=== PATIENT | female | born 1955 | race Caucasian/White ===

== ENCOUNTER 2019-09-21 11:23 | Outpatient (CLI) | payer MEDICARE, SELFPAY ==
--- NOTE | ~2019-09-21 | MMUS_ITS ---
MM diagnostic jeff BI w aasd, US breast LT limited DATE: 09/21/2019 11:54 (accession [id number]), 09/21/2019 12:35 (accession [id number]) INDICATION: Six-month follow-up of probable benign left breast mass at 6:00 7 cm from the nipple TECHNIQUE: Digital ML, MLO and CC Tomosynthesis with composite 2-D views. Computer-aided detection. COMPARISON: 09/26/2018 bilateral digital screening mammogram and diagnostic left digital mammogram and limited left breast ultrasound 01/27/2011 bilateral digital screening mammogram DENSITY: The breasts are almost entirely fatty. FINDINGS: Bilateral diagnostic mammogram: Approximately 3 x 9 x 8 mm circumscribed opacity is noted posteriorly in the central left breast, sta ble since 10/06/2018. No interval mass, architectural distortion, malignant calcification, skin thicke simeon or retraction of either breast is detected. Targeted left breast ultrasound at 6:00: Previously reported 3.3 x 6.9 x 6.6 mm parallel circumscribed hypoechoic lesion at 6:00 7 cm from the nipple currently measures approximately 4 x 4.5 x 5.3 mm, without internal vascularity or posterior shadowing. IMPRESSION: BIRADS Category 2: Benign RECOMMENDATION: Routine annual mammographic screening Reviewed, dictated and finalized at [facility] Reviewed, dictated and finalized at [facility]. ING MACHINE ASSEMBLER IMPRESSION: BIRADS Category 2: Benign RECOMMENDATION: Routine annual mammographic screening
== END 2019-09-21 11:24 | disposition home or self-care (01) ==
PROVIDERS: PCP Family Medicine Adolescent Medicine; Referring Provider Obstetrics & Gynecology Gynecology
DX: R92.8 Other abnormal and inconclusive findings on diagnostic imaging of breast (principal)
CPT/HCPCS: 76642; 77062; 77066; G0279

== ENCOUNTER 2020-11-01 09:40 | Observation (INO) | payer MEDICARE, SELFPAY ==
[2020-11-01] VITALS (9 sets, daily range): BP systolic 108–141; BP diastolic 70–94; PULSE 66–113; RESP 16–18; TEMP 36.2–36.9; O2SAT 99–100; BMI 37.3
--- NOTE | 2020-11-01 10:18 | ED.GENADULT ---
HPI - General Adult General Chief complaint: GI Bleed Stated complaint: gi bleed Time Seen by Provider: 11/01/20 10:12 Source: patient and RN notes reviewed Mode of arrival: ambulatory Limitations: no limitations History of Present Illness HPI narrative: Patient is a 65 years old white female presents with frequent liquidy black stool since last night associated with weakness. Patient denies any fever, chills, nausea, vomiting, abdominal pain, back pain, chest pain or shortness of breath. History of Daniel fundoplication 2006. Patient is not on any PPI at this time. Patient denies any blood thinner intake. Patient does not smoke or drink or uses drugs. Related Data Home Medications Medication Instructions Recorded Confirmed cholecalciferol (vitamin D3) 100 mcg PO DAILY 11/01/20 escitalopram oxalate mg 11/01/20 Allergies Allergy/AdvReac Type Severity Reaction Status Date / Time No Known Allergies Allergy Verified 01/16/19 09:02 Review of Systems Review of Systems: Narrative: CONSTITUTIONAL: Denies fever, chills, or sweats. EYES: Denies visual changes, redness, or discharge. ENT: Denies rhinorrhea, congestion, sore throat, or otalgia. CARDIOVASCULAR: Denies chest pain, palpitations, or edema. RESPIRATORY: Denies cough or dyspnea. GASTROINTESTINAL: Denies abdominal pain, nausea, vomiting, or diarrhea. GENITOURINARY: Denies dysuria or hematuria. SKIN: Denies rash or itching. MUSCULOSKELETAL: Denies back pain, joint pain, or myalgia. NEUROLOGIC: Denies headache, numbness, or weakness. PSYCHIATRIC: Denies anxiety or depression. PMFSH Family History Family History Other Cerebrovascular accident Diabetes mellitus Family history of Alzheimer's disease Family history of cardiovascular disease Hypertension Social History Social History Smoking status: Never smoker Alcohol intake: never Exam Narrative: Exam Narrative: General appearance: Well-developed, well-nourished Skin: Normal color Head: Normocephalic, nontraumatic Eyes: Clear conjunctiva ENT: Oropharynx normal, ears normal, nose normal Neck: Supple, nontender Chest and respiratory: Airway patent, no respiratory distress, no accessory muscle use Heart: Regular rate/rhythm Abdomen: Soft, nontender, no organomegaly, quiet bowel sounds, rectal exam showed liquidy black stool, guaiac positive, no tenderness, no mass, no hemorrhoids Vascular: Normal peripheral pulses, normal capillary refill. Musculoskeletal: Normal range of motion, nontender back Neurologic: Alert and oriented ?3, VERIFICATION SPECIALIST is normal as tested, no gross motor deficit Course Course Emergency Course: Stable Consultations Consultation #1: Dr. Aguilar Date: 11/01/20 Time: 11:37 Vital Signs Vital signs: Vital Signs Temperature 36.9 C 11/01/20 09:48 Pulse Rate 86 11/01/20 09:48 Respiratory Rate 18 11/01/20 09:48 Blood Pressure 141/91 H 11/01/20 09:48 Pulse Oximetry 99 11/01/20 09:48 Temperature 36.9 C 11/01/20 09:48 Pulse Rate 113 H 11/01/20 10:09 Respiratory Rate 18 11/01/20 09:48 Blood Pressure 125/80 11/01/20 10:09 Pulse Oximetry 99 11/01/20 09:48 Medical Decision Making [facility] Narrative Medical decision making narrative: Patient presents with black stool. Upper GI bleed is my concern especially patient had history of GERD, fundoplication. Labs, IV Protonix, IV fluid ordered. Further plan to follow Differential Diagnosis Differential Diagnosis: GI bleed, electrolyte imbalance, anemia Vital Signs Vital Signs: Vital Signs Temperature 36.9 C 11/01/20 09:48 Puls
[2020-11-01 10:35] LABS: Basophils Absolute Auto 0.1 K/mm3 (0.0-0.1); Basophils Percent Auto 0.7 % (0.2-1.2); Eosinophils Percent Auto 0.3 % (0-4.4); Hematocrit 41.4 % (37.0-47.0); Hemoglobin 13.4 g/dL (12.0-15.0); Immature Granulocyte Absolute 0.09 K/mm3 (0.00-0.031); Immature Granulocyte Percent A 0.8 % (0-0.5); Lymphocytes Percent Auto 14.5 % (18.3-44.2); Mean Corpuscular HGB Conc 32.4 g/dl (32-36); Mean Corpuscular Hemoglobin 30.4 pg (26-34); Mean Corpuscular Volume 93.9 fl (80-100); Mean Platelet Volume 10.1 fl (7.4-10.4); Monocytes Absolute Auto 0.5 K/mm3 (0.1-0.6); Monocytes Percent Auto 4.9 % (2.6-8.5); Neutrophils Absolute Auto 8.7 K/mm3 (1.3-6.7); Neutrophils Percent Auto 78.8 % (45.5-73.1); Platelet Count Result 355 k/mm3 (150-375); Red Blood Count 4.41 M/mm3 (4.2-5.4)
[2020-11-01] MEDS: PANTOPRAZOLE SODIUM IV 40 MG VIAL IV PUSH ×2 (10:41→20:23)
[2020-11-01 10:42] LABS: Alanine Aminotransferase 19 U/L (4-35); Albumin Level 4.1 g/dL (3.5-5.1); Alkaline Phosphatase 67 U/L (38-126); Anion Gap 8 mmol/L (8-16); Aspartate Amino Transferase 21 U/L (14-36); Bilirubin,Total 0.4 mg/dL (0.2-1.3); Blood Urea Nitrogen 34 mg/dL (7-17); Calcium 8.8 mg/dL (8.4-10.2); Carbon Dioxide 25 mmol/L (22-30); Chloride 104 mmol/L (98-107); Estimated CRCL calculation 77 ml/min; Estimated Glomerular Filt Rate > 60; Glucose 120 mg/dL (65-105); Potassium 4.3 mmol/L (3.4-5.0); Sodium 137 mmol/L (137-145)
[2020-11-01 10:56] LABS: Prothrombin Time 13.7 Seconds (11.1-14.7)
[2020-11-01 10:57] LABS: Partial Thromboplastin Time 22.7 SECONDS (22.3-36.8)
[2020-11-01 12:06] LABS: Hemoglobin 12.9 g/dL (12.0-15.0)
--- NOTE | 2020-11-01 13:35 | PC.NURSE ---
This patient, Deena Damon, was admitted to [facility] Surg Room 310-01. Patient/family oriented to hospital policies and general routines including ID bracelet, bed and alarms, visiting hours, pain management, procedures, bathroom and other care routines, personal items, smoking policy, room service/diet, and visiting hours. Information on how to activate the Rapid Response Team has been discussed. Patient/Family are encouraged to report perceived risks to care and to ask questions if they do not understand what they are told or what they should do.
[2020-11-01] MEDS: SODIUM CHLORIDE 0.9% IV 1,000 ML 150 ML IV CONT ×2 (14:00→20:22)
--- NOTE | 2020-11-01 16:18 | PM.IMHP ---
H&P: HPI History of Present Illness Date/Time: 11/01/20 16:18 this is a 65 year old female patient who has had a colonoscopy in the last 5 years and has had a polypectomy. The patient also had a history of fundoplication with herniation at the insertion sites. The patient started having dark liquid stools last night and became very weak. She was not short of breath. She denies any fever, chills, nausea, vomiting or abdominal pain. The patient stated that she has tenderness around her umbilical area in her left upper quadrant where it has herniated but otherwise she does not have any other pain and that pain is chronic. The patient stated that she probably used instead the couple times during the week but does not use it excessively. The patient is not on a PPI. The patient stated that she had 1 dark stool down in the emergency room. She does not take any iron supplement. Her H&H is stable at this time. Initial H&H 13.4 and 41.4 and the 2nd reading was 12.9 and 39.0. The patient is being admitted to observation status on the date of service of 11/01/2020 Chief Complaint: Dark stools Review of Systems Review of Systems: All systems reviewed & are unremarkable except as noted in HPI and below Constitutional: Constitutional: Reports as per HPI and Reports no additional constitutional complaints Eyes: Eyes: Reports as per HPI and Reports no additional eye complaints ENT: Reports system reviewed and no additional complaints, except as documented and Reports Normal hearing present Cardiovascular: Cardiovascular: Reports no additional cardiovascular complaints Respiratory: Respiratory: Reports no additional respiratory complaints and Reports no additional respiratory complaints Gastrointestinal: Gastrointestinal: Reports as per HPI and Reports no additional gastrointestinal complaints Musculoskeletal: Musculoskeletal: Reports no additional musculoskeletal complaints Integumentary/Breasts: Skin/Breast: Reports system reviewed and no additional complaints, except as docu and Reports as per HPI Neurologic: Reports system reviewed and no additional complaints, except as documented, Reports as per HPI and Reports Normal hearing present Psychiatric: Psychiatric: Reports no additional psychiatric complaints and Reports as per HPI Endocrine: Endocrine: Reports no additional endocrine complaints Hematologic/Lymphatic: Hematologic/Lymphatic: Reports no additional hematologic/lymphatic complaints Allergic/Immunologic: Allergic/Immunologic: Reports no additional allergic/immunologic complaints [facility] Past Medical History Medical History (Updated 11/01/20 @ 16:21 by Yessy Banks NP) Anxiety Large hiatal hernia Surgical History Surgical History (Updated 11/01/20 @ 16:21 by Yessy Banks NP) H/O colonoscopy with polypectomy History of fundoplication Family History Family History (Updated 11/01/20 @ 16:22 by Yessy Banks NP) Mother Cerebrovascular accident Family history of cardiovascular disease Father Family history of cardiovascular disease Other Diabetes mellitus Family history of Alzheimer's disease Hypertension Social History Social History (Updated 11/01/20 @ 16:23 by Yessy Banks NP) Social History: The patient is a lifelong nonsmoker. The patient is and desires to have her is a durable power business attorney for healthcare. The patient is a full code. The patient has 3 children. 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 Smoking status: Never smoker Alcohol intake: never Substance use: never Gender identity (if verbalized by the patient): Female Sexual Orientation (if Verbalized by the Patient): Straight or Heterosexual Spiritual care concerns: No Meds Home Medications and Allergies Home Medications Medication Instructions Recorded Confirmed Type cholecalciferol (vitamin D3) 100 mcg PO DAILY 11/01/20 04
--- NOTE | 2020-11-01 16:40 | WPDGICN ---
Assessment and Plan Assessment and plan (1) Melena: Code(s): K92.1 - Melena Status: Acute Assessment and Plan: admitted to hospital on iv protonix egd in the morning to assess site of bleeding, she recently used nsaid's (2) Acute GI bleeding: Code(s): K92.2 - Gastrointestinal hemorrhage, unspecified Status: Acute Assessment and Plan: monitor and check hb, on fluids (3) Acute blood loss anemia: Code(s): D62 - Acute posthemorrhagic anemia Status: Acute (4) History of fundoplication: Code(s): Z98.890 - Other specified postprocedural states Status: Inactive GI Consult Note Consult date/time: 11/01/20 16:40 Reason for consult: melena HPI: Deena Damon is a 65 year old female history of Daniel fundoplication 2006 (around that time had her last EGD), she is not taking any ppi, her last colonoscopy ~ [address] Garces with polyps. She came here with new onset last night of dark tarry stools about 5 times and this morning became very weak. Initial Hb 13.4 and repeat 12.9, BUN 34 with normal creatinine. Denies previous GIB. She says that took ibuprofen x3 last 5 days because foot pain. She is admitted to hospital and started on iv protonix. Review of Systems Constitutional: Constitutional: Denies chills and Reports weakness Eyes: Eyes: Denies blurry vision ENT: Reports Normal hearing present Cardiovascular: Cardiovascular: Denies chest pain Respiratory: Respiratory: Denies dyspnea Gastrointestinal: Gastrointestinal: Denies abdominal pain and Reports melena Genitourinary: Genitourinary: Denies flank pain Musculoskeletal: Musculoskeletal: Denies neck pain Integumentary/Breasts: Skin/Breast: Denies dry skin Neurologic: Denies headache(s) Psychiatric: Psychiatric: Reports no additional psychiatric complaints PMFSH Past Medical History Medical History (Updated 11/01/20 @ 16:45 by Maciel Bello MD) Acute blood loss anemia Anxiety Large hiatal hernia Melena Surgical History Surgical History (Updated 11/01/20 @ 16:45 by Maciel Bello MD) H/O colonoscopy with polypectomy History of fundoplication Family History Family History (Updated 11/01/20 @ 16:22 by Yessy Banks NP) Mother Cerebrovascular accident Family history of cardiovascular disease Father Family history of cardiovascular disease Other Diabetes mellitus Family history of Alzheimer's disease Hypertension Social History Social History (Updated 11/01/20 @ 16:23 by Yessy Banks NP) Social History: The patient is a lifelong nonsmoker. The patient is and desires to have her is a durable power finance attorney for healthcare. The patient is a full code. The patient has 3 children. 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 Smoking status: Never smoker Alcohol intake: never Substance use: never Gender identity (if verbalized by the patient): Female Sexual Orientation (if Verbalized by the Patient): Straight or Heterosexual Spiritual care concerns: No Meds Home Medications and Allergies Home Medications Medication Instructions Recorded Confirmed Type cholecalciferol (vitamin D3) 100 mcg PO DAILY 11/01/20 11/01/20 History escitalopram oxalate 10 mg PO DAILY 11/01/20 11/01/20 History Allergies Allergy/AdvReac Type Severity Reaction Status Date / Time No Known Allergies Allergy Verified 01/16/19 09:02 Vital Signs Vital Signs - 24 hr 11/01/20 09:48 11/01/20 10:09 11/01/20 11:46 Temperature 98.5 F Pulse Rate 86 113 H 90 Respiratory Rate 18 18 Blood Pressure 141/91 H 120/78 112/73 Pulse Oximetry 99 100 11/01/20 13:24 11/01/20 14:00 11/01/20 14:10 Temperature 97.4 F L Pulse Rate 81 66 81 Respiratory Rate 16 16 16 Blood Pressure 132/94 H 130/85 Pulse Oximetry 99 99 99 Exam Const: General: comfortable and
[2020-11-01 18:06] LABS: Hematocrit 40.2 % (37.0-47.0); Hemoglobin 13.3 g/dL (12.0-15.0)
[2020-11-02 01:16] LABS: Hematocrit 34.6 % (37.0-47.0); Hemoglobin 11.6 g/dL (12.0-15.0)
[2020-11-02] MEDS: SODIUM CHLORIDE 0.9% IV 1,000 ML 150 ML IV CONT (05:34)
[2020-11-02 06:00] VITALS: BP 99/55; PULSE 69; RESP 16; TEMP 36.2; O2SAT 97
[2020-11-02 06:19] LABS: Hematocrit 33.8 % (37.0-47.0); Hemoglobin 10.9 g/dL (12.0-15.0)
[2020-11-02 06:26] LABS: Alanine Aminotransferase 13 U/L (4-35); Albumin Level 3.1 g/dL (3.5-5.1); Alkaline Phosphatase 55 U/L (38-126); Anion Gap 2 mmol/L (8-16); Aspartate Amino Transferase 20 U/L (14-36); Bilirubin,Total 0.2 mg/dL (0.2-1.3); Blood Urea Nitrogen 24 mg/dL (7-17); Calcium 8.3 mg/dL (8.4-10.2); Carbon Dioxide 29 mmol/L (22-30); Chloride 109 mmol/L (98-107); Estimated CRCL calculation 68 ml/min; Estimated Glomerular Filt Rate > 60; Glucose 94 mg/dL (65-105); Lipase 27 U/L (23-300); Magnesium 1.9 mg/dL (1.6-2.3); Potassium 3.8 mmol/L (3.4-5.0); Sodium 140 mmol/L (137-145)
[2020-11-02 08:05] VITALS: O2SAT 98
[2020-11-02] MEDS: PANTOPRAZOLE SODIUM IV 40 MG VIAL IV PUSH (10:34)
--- NOTE | 2020-11-02 11:41 | PM.IMPN ---
Progress Note: A&P Assessment and Plan (1) Acute GI bleeding: Code(s): K92.2 - Gastrointestinal hemorrhage, unspecified Status: Acute Assessment and Plan: Developed melena and diarrhea symptoms 24 hours prior to arrival. She also has symptoms of fatigue. Hemoglobin on arrival was 13.4 and this morning was 10.9. She reports her fatigue is improving. Will continue monitoring H&H every [address] Aguilar is going to perform an EGD this morning. Continue monitoring (2) Anxiety: Code(s): F41.9 - Anxiety disorder, unspecified Status: Chronic Assessment and Plan: Continue with Lexapro Time Spent With Patient Time with patient: 25 - 35 minutes Subjective Date/time seen: 11/02/20 11:41 Interval history: Date of Service 11/02/20: Patient feeling well today. No more dark stools after being admitted into the hospital. She does not have any pain, nausea, vomiting, fever, chills, leg swelling, calf pain or any other symptoms at this time. Review of Systems Review of Systems: All systems reviewed & are unremarkable except as noted in HPI and below Exam Narrative: Exam Narrative: General: 65-year-old woman sitting up on the side of the bed, watching TV. Appears comfortable. In no acute distress. Skin: No jaundice or cyanosis. Good skin turgor. Neck: Full range of motion. Supple. Nontender. Respiratory: Lungs are clear to auscultation bilaterally. No bony chest wall tenderness. Cardiovascular: The heart has a regular rate and rhythm without murmur. Lower extremities: No lower extremity edema. Distal pulses are easily palpated. No calf tenderness to palpation. Gastrointestinal: The abdomen is soft, nontender and nondistended with active bowel sounds. Psychiatric: Lucid and oriented. Memory intact. Neurologic: No focal deficits. Speech is clear. No facial drooping. Objective Data Vital Signs Vital Signs: Vital Signs - 24 hr 11/01/20 11:46 11/01/20 13:24 11/01/20 14:00 Temperature 97.4 F L Pulse Rate 90 81 66 Respiratory Rate 18 16 16 Blood Pressure 112/73 132/94 H 130/85 Pulse Oximetry 100 99 99 11/01/20 14:10 11/01/20 22:00 11/02/20 06:00 Temperature 97.2 F L 97.2 F L Pulse Rate 81 96 69 Respiratory Rate 16 16 16 Blood Pressure 108/75 99/55 L Pulse Oximetry 99 99 97 11/02/20 08:05 Temperature Pulse Rate Respiratory Rate Blood Pressure Pulse Oximetry 98 Intake/Output Intake/Output: Intake & Output 10/30/20 10/31/20 11/01/20 11/02/20 23:59 23:59 23:59 23:59 Intake Total 1600 1300 Balance 1600 1300 Meds/Results Medications: Active Medications Generic Name Dose Route Start Last Admin Trade Name Freq PRN Reason Stop Dose Admin Escitalopram Oxalate 10 mg 11/02/20 09:00 Escitalopram Oxalate 10 Mg Tablet PO DAILY [facility] Sodium Chloride 1,000 mls @ 150 mls/hr 11/01/20 11:35 11/02/20 05:34 Normal Saline Iv IV CONT 150 mls/hr .Q6H40M AMAIRANI Administration Ondansetron HCl 4 mg 11/01/20 11:31 Ondansetron Inj 4 Mg/2 Ml Vial IV PUSH Q4H PRN Nausea Pantoprazole Sodium 40 mg 11/01/20 21:00 11/02/20 10:34 Pantoprazole Sodium Iv 40 Mg Vial IV PUSH 40 mg Q12HR AMAIRANI Administration Vitamin D 4,000 units 11/02/20 09:00 Cholecalciferol 1,000 Units Tablet PO DAILY [facility] Labs Labs: Laboratory Results - last 24 hr 11/01/20 11/01/20 11/02/20 12:01 17:58 01:09 Hgb 12.9 13.3 11.6 L Hct 39.0 40.2 34.6 L Sodium Potassium Chloride Carbon Dioxide Anion Gap BUN Creatinine Estim Creat Clear Calc Estimated GFR Glucose Calcium Magnesium Total Bilirubin AST ALT Alkaline Phosphatase Total Protein Albumin Lipase 11/02/20 11/02/20 05:44 05:44 Hgb 10.9 L Hct 33.8 L Sodium 140 Potassium 3.8 Chloride 109 H Carbon Dioxide 29 Anion Gap 2 L BUN 24 H D Creatinine 0.80
--- NOTE | 2020-11-02 12:10 | WPDANESEPPF ---
Anes - Initial Pre Proc Eval Procedure: Operation Date: 11/02/20 14:00 Proposed Procedures p Esophagogastroduodenoscopy - Maciel Bello MD Date/Time: 11/02/20 12:10 Surgeon: Ute Palmer PA-C Pre Op Diagnosis: GI bleed Patient Data Age: 65 Gender: F Height: 5 ft 4 in Weight: 98.8 kg Last Vital Signs Temp 97.2 F L 11/02/20 06:00 Pulse 69 11/02/20 06:00 Resp 16 11/02/20 06:00 BP 99/55 L 11/02/20 06:00 Pulse Ox 98 11/02/20 08:05 Allergies Allergy/AdvReac Type Severity Reaction Status Date / Time No Known Allergies Allergy Verified 01/16/19 09:02 Home Medications Medication Instructions Recorded Confirmed Type cholecalciferol (vitamin D3) 100 mcg PO DAILY 11/01/20 11/01/20 History escitalopram oxalate 10 mg PO DAILY 11/01/20 11/01/20 History Laboratory Tests 11/01/20 11/01/20 11/02/20 12:01 17:58 01:09 Hgb 12.9 g/dL g/dL 13.3 g/dL g/dL 11.6 g/dL L g/dL (12.0-15.0) (12.0-15.0) (12.0-15.0) Hct 39.0 % % 40.2 % % 34.6 % L % (37.0-47.0) (37.0-47.0) (37.0-47.0) Sodium Potassium Chloride Carbon Dioxide Anion Gap BUN Creatinine Estim Creat Clear Calc Estimated GFR Glucose Calcium Magnesium Total Bilirubin AST ALT Alkaline Phosphatase Total Protein Albumin Lipase 11/02/20 11/02/20 05:44 05:44 Hgb 10.9 g/dL L g/dL (12.0-15.0) Hct 33.8 % L % (37.0-47.0) Sodium 140 mmol/L mmol/L (137-145) Potassium 3.8 mmol/L mmol/L (3.4-5.0) Chloride 109 mmol/L H mmol/L (98-107) Carbon Dioxide 29 mmol/L mmol/L (22-30) Anion Gap 2 mmol/L L mmol/L (8-16) BUN 24 mg/dL H D mg/dL (7-17) Creatinine 0.80 mg/dL mg/dL (0.7-1.0) Estim Creat Clear Calc 68 ml/min ml/min Estimated GFR > 60 (59 - ) Glucose 94 mg/dL mg/dL (65-105) Calcium 8.3 mg/dL L mg/dL (8.4-10.2) Magnesium 1.9 mg/dL mg/dL (1.6-2.3) Total Bilirubin 0.2 mg/dL mg/dL (0.2-1.3) AST 20 U/L U/L (14-36) ALT 13 U/L U/L (4-35) Alkaline Phosphatase 55 U/L U/L (38-126) Total Protein 6.0 g/dL L g/dL (6.3-8.2) Albumin 3.1 g/dL L g/dL (3.5-5.1) Lipase 27 U/L U/L (23-300) Patient hx anesthesia problems: none Family hx anesthesia problems: none PMFSH Past Medical History Medical History (Updated 11/01/20 @ 16:45 by Maciel Bello MD) Acute blood loss anemia Anxiety Large hiatal hernia Melena Surgical History Surgical History (Updated 11/01/20 @ 16:45 by Maciel Bello MD) H/O colonoscopy with polypectomy History of fundoplication Family History Family History (Updated 11/01/20 @ 16:22 by Yessy Banks NP) Mother Cerebrovascular accident Family history of cardiovascular disease Father Family history of cardiovascular disease Other Diabetes mellitus Family history of Alzheimer's disease Hypertension Social History Social History (Updated 11/01/20 @ 16:23 by Yessy Banks NP) Social History: The patient is a lifelong nonsmoker. The patient is and desires to have her is a durable power regulatory attorney for healthcare. The patient is a full code. The patient has 3 children. 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 Smoking status: Never smoker Alcohol intake: never Substance use: never Gender identity (if verbalized by the patient): Female Sexual Orientation (if Verbalized by the Patient): Straight or Heterosexual Spiritual care concerns: No Anes - Eval Final PreProcedure Day of Procedure 11/02/20 12:10 Patient weight: obese Heart: regular rate and rhy
[2020-11-02] MEDS: LACTATED RINGERS 1,000 ML 150 ML IV CONT (13:00)
[2020-11-02 13:46] VITALS: BP 108/32; PULSE 72; RESP 19; O2SAT 100
[2020-11-02 13:56] VITALS: BP 109/48; PULSE 69; RESP 19; O2SAT 100
[2020-11-02 14:06] VITALS: BP 96/46; PULSE 70; RESP 21; O2SAT 100
[2020-11-02 14:57] LABS: Hematocrit 35.2 % (37.0-47.0); Hemoglobin 11.3 g/dL (12.0-15.0)
[2020-11-02] MEDS: CHOLECALCIFEROL 1,000 UNITS TABLET 4000 UNITS PO (16:35)
[2020-11-02] MEDS: ESCITALOPRAM OXALATE 10 MG TABLET PO (16:36)
--- NOTE | 2020-11-02 16:37 | PM.DS ---
DS: Admitting Diagnosis Admitting Diagnosis Admitting Diagnosis: Melena DS: Discharge Diagnosis Discharge Diagnosis (1) Acute GI bleeding: Code(s): K92.2 - Gastrointestinal hemorrhage, unspecified Status: Acute Assessment and Plan: Developed melena and diarrhea symptoms 24 hours prior to arrival. She also has symptoms of fatigue. Hemoglobin on arrival was 13.4 and this morning was 10.9. She reports her fatigue is improving. Will continue monitoring H&H every [address] Aguilar is going to perform an EGD this morning. Continue monitoring (2) Anxiety: Code(s): F41.9 - Anxiety disorder, unspecified Status: Chronic Assessment and Plan: Continue with Lexapro DS: Summary Hospital Course Reason for hospitalization: Patient is a 65-year-old woman with a history of anxiety, who presented to the emergency room with melonic stools, generalized weakness one night prior to arrival. The patient has never had similar symptoms before. Patient did have a colonoscopy within the last 5 years. Initial vitals showed she was afebrile, non tachycardic, normal respiratory rate, oxygenation on room air slightly elevated blood pressure 141/91. Initial labs showed slight leukocytosis, stable anemia labs with a hemoglobin of 13, hematocrit 41%. Normal coag panel, normal CMP other than slightly elevated BUN at 34 and glucose at 120. Patient was placed NPO with a consult to GI, started on IV PPI. GI took her for EGD which showed gastritis. Recommended PPI BID. Repeat EGD in 3 month. Recommended no NSAIDS. Patient is stable .H&H stable. Patient be discharged home. She understands and agrees the plan all questions answered. Hospital Course: See above Status at Discharge Cognitive/behavioral status at discharge: Stable, improved. Time Spent with Patient Time attestation: Total time spent providing and/or coordinating discharge services: 31 Time spent: Greater than 30 minutes Exam Narrative: Exam Narrative: General: 65-year-old woman sitting up on the side of the bed, watching TV. Appears comfortable. In no acute distress. Skin: No jaundice or cyanosis. Good skin turgor. Neck: Full range of motion. Supple. Nontender. Respiratory: Lungs are clear to auscultation bilaterally. No bony chest wall tenderness. Cardiovascular: The heart has a regular rate and rhythm without murmur. Lower extremities: No lower extremity edema. Distal pulses are easily palpated. No calf tenderness to palpation. Gastrointestinal: The abdomen is soft, nontender and nondistended with active bowel sounds. Psychiatric: Lucid and oriented. Memory intact. Neurologic: No focal deficits. Speech is clear. No facial drooping. DS: Data Data Completed and Pending Pending studies at discharge: Pending at discharge 11/02/20 13:42 Surgical [PTH] Routine Labs on day of discharge: Labs from last 24 hours 11/02/20 11/02/20 11/02/20 14:51 05:44 05:44 Hgb 11.3 L 10.9 L Hct 35.2 L 33.8 L Sodium 140 Potassium 3.8 Chloride 109 H Carbon Dioxide 29 Anion Gap 2 L BUN 24 H D Creatinine 0.80 Estim Creat Clear Calc 68 Estimated GFR > 60 Glucose 94 Calcium 8.3 L Magnesium 1.9 Total Bilirubin 0.2 AST 20 ALT 13 Alkaline Phosphatase 55 Total Protein 6.0 L Albumin 3.1 L Lipase 27 11/02/20 11/01/20 01:09 17:58 Hgb 11.6 L 13.3 Hct 34.6 L 40.2 Sodium Potassium Chloride Carbon Dioxide Anion Gap BUN Creatinine Estim Creat Clear Calc Estimated GFR Glucose Calcium Magnesium Total Bilirubin AST ALT Alkaline Phosphatase Total Protein Albumin Lipase Discharge Plan Discharge Attending physician on discharge: Santo Prescott Consulting providers: Maciel Bello Discharging Clinician: Ute Palmer
[2020-11-02 18:36] LABS: Hematocrit 34.2 % (37.0-47.0); Hemoglobin 11.2 g/dL (12.0-15.0)
== END 2020-11-02 18:20 | disposition home or self-care (01) ==
LOC: ANHED 11:38 → ANH3MEDSUR 14:03
PROVIDERS: Internal Medicine Gastroenterology; Nurse Practitioner; Physician Assistant; Admitting Provider Family Medicine; Emergency Provider Emergency Medicine; PCP Family Medicine Adolescent Medicine; Visit Provider Physician Assistant
PROC: 0DJ08ZZ Inspection of Upper Intestinal Tract, Via Natural or Artificial Opening Endoscopic (ICD-10-PCS; CPT 43235; principal; 2020-11-02 14:00)
DX: K92.2 Gastrointestinal hemorrhage, unspecified (principal); F41.9 Anxiety disorder, unspecified; K92.1 Melena; D62 Acute posthemorrhagic anemia
CPT/HCPCS: 43239; 36415; 80053; 83690; 83735; 85014; 85018; 85025; 85610; 85730; 86850; 86900; 86901; 87081; 88305; 96361; 96374; 99285; A9270; C9113; G0378; J2704; J7030; J7120

== ENCOUNTER → 2021-02-14 00:40 | Outpatient (CLI) | payer MEDICARE, SELFPAY ==
[2021-02-14 20:36] LABS: SARS-CoV-2 RNA PCR Negative
== END ==
PROVIDERS: PCP Family Medicine Adolescent Medicine; Visit Provider Internal Medicine Gastroenterology
DX: Z01.812 Encounter for preprocedural laboratory examination (principal); Z20.822 Contact with and (suspected) exposure to COVID-19
CPT/HCPCS: C9803; U0003; U0005

== ENCOUNTER 2021-02-17 00:16 | Day surgery (SDC) | payer MEDICARE, SELFPAY ==
[2021-02-02 15:30] VITALS: BMI 37.0
[2021-02-17 07:42] VITALS: BP 146/73; PULSE 74; RESP 18; TEMP 35.9; O2SAT 98; BMI 36.9
[2021-02-17] MEDS: LACTATED RINGERS 1,000 ML 150 ML IV CONT (07:50)
--- NOTE | 2021-02-17 08:31 | P.PNAN_ITS ---
Anes - Initial Pre Proc Eval Procedure: Operation Date: 02/17/21 08:30 Proposed Procedures p Esophagogastroduodenoscopy - Medhat Garces MD Date/Time: 02/17/21 08:31 Surgeon: Medhat Garces MD Pre Op Diagnosis: gastritis Patient Data Age: 65 Gender: F Height: 1.63 m Weight: 97.7 kg Last Vital Signs Temp 96.7 F L 02/17/21 07:42 Pulse 74 02/17/21 07:42 Resp 18 02/17/21 07:42 BP 146/73 H 02/17/21 07:42 Pulse Ox 98 02/17/21 07:42 Allergies Allergy/AdvReac Type Severity Reaction Status Date / Time No Known Allergies Allergy Verified 02/17/21 07:41 Home Medications Medication Instructions Recorded Confirmed Type cholecalciferol (vitamin D3) 100 mcg PO DAILY 11/01/20 02/17/21 History pantoprazole 40 mg PO BID 90 Days #180 tablet 11/02/20 02/17/21 Rx escitalopram oxalate 20 mg PO DAILY 02/02/21 02/17/21 History Patient hx anesthesia problems: none Family hx anesthesia problems: none PMFSH Past Medical History Medical History (Updated 11/01/20 @ 16:45 by Maciel Bello MD) Acute blood loss anemia Anxiety Large hiatal hernia Melena Surgical History Surgical History (Updated 11/01/20 @ 16:45 by Maciel Bello MD) H/O colonoscopy with polypectomy History of fundoplication Family History Family History (Updated 11/01/20 @ 16:22 by Yessy Banks NP) Mother Cerebrovascular accident Family history of cardiovascular disease Father Family history of cardiovascular disease Other Diabetes mellitus Family history of Alzheimer's disease Hypertension Social History Social History (Updated 11/01/20 @ 16:23 by Yessy Banks NP) Social History: The patient is a lifelong nonsmoker. The patient is and desires to have her is a durable power tax associate attorney for healthcare. The patient is a full code. The patient has 3 children. 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 Smoking status: Never smoker Alcohol intake: never Substance use: never Living arrangements: alone Gender identity (if verbalized by the patient): Female Spiritual care concerns: No Anes - Eval Final PreProcedure Day of Procedure 02/17/21 08:31 Patient weight: obese Heart: regular rate and rhythm Lungs: clear to auscultation Airway: Mallampati scale class II Neurological: alert and oriented Last oral intake: >/= 8 hours ASA classification: III Emergent: no Anesthetic plan: proceed Anesthesia type and monitoring: general GIVS and standard monitoring Informed Consent: The patient's anesthetic plan and its attendant risks and benefits were discussed with the patient/family/POA. Questions were solicited and answers provided to the satisfaction of the patient/family/POA.
--- NOTE | 2021-02-17 08:37 | WPDGICN ---
Assessment and Plan Assessment and plan (1) Gastric peptic ulcer: Code(s): K25.9 - Gastric ulcer, unspecified as acute or chronic, without hemorrhage or perforation Status: Acute Assessment and Plan: Patient had GI bleeding attributed to gastric ulcerations. Currently improving on pantoprazole 40 mg p.o. daily. Plan to continue to avoid nonsteroidal anti-inflammatory agents. Follow-up EGD today. Further recommendations after endoscopy. (2) History of colon polyps: Code(s): Z86.010 - Personal history of colonic polyps Status: Acute Assessment and Plan: Patient has a prior history of colon polyps. Continued follow-up at 5 year intervals is advised with colonoscopies. GI Consult Note Consult date/time: 02/17/21 08:37 HPI: Denea Damon is a 65 year old female Presents for follow-up EGD. Patient has a history of GI bleeding with melena in October of 2020. EGD revealed gastritis and superficial erosions ulcerations within the body of the stomach. She is subsequently been prescribed pantoprazole. Currently on 40 mg p.o. once daily. She currently denies any abdominal pain. She has had no evidence of recent GI blood loss. Bowel habits have been normal. She occasionally has throat discomfort. Patient denies any dysphagia. Review of Systems Review of Systems: All systems reviewed & are unremarkable except as noted in HPI and below PMFSH Past Medical History Medical History (Updated 02/17/21 @ 08:39 by Medhat Garces MD) Acute blood loss anemia Anxiety Large hiatal hernia Melena Surgical History Surgical History (Updated 11/01/20 @ 16:45 by Maciel Bello MD) H/O colonoscopy with polypectomy History of fundoplication Family History Family History (Updated 11/01/20 @ 16:22 by Yessy Banks NP) Mother Cerebrovascular accident Family history of cardiovascular disease Father Family history of cardiovascular disease Other Diabetes mellitus Family history of Alzheimer's disease Hypertension Social History Social History (Updated 11/01/20 @ 16:23 by Yessy Banks NP) Social History: The patient is a lifelong nonsmoker. The patient is and desires to have her is a durable power attorney law clerk for healthcare. The patient is a full code. The patient has 3 children. 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 Smoking status: Never smoker Alcohol intake: never Substance use: never Living arrangements: alone Gender identity (if verbalized by the patient): Female Spiritual care concerns: No Meds Home Medications and Allergies Home Medications Medication Instructions Recorded Confirmed Type cholecalciferol (vitamin D3) 100 mcg PO DAILY 11/01/20 02/17/21 History pantoprazole 40 mg PO BID 90 Days #180 tablet 11/02/20 02/17/21 Rx escitalopram oxalate 20 mg PO DAILY 02/02/21 02/17/21 History Allergies Allergy/AdvReac Type Severity Reaction Status Date / Time No Known Allergies Allergy Verified 02/17/21 07:41 Vital Signs Vital Signs - 24 hr 02/17/21 07:42 Temperature 96.7 F L Pulse Rate 74 Respiratory Rate 18 Blood Pressure 146/73 H Pulse Oximetry 98 Exam Narrative: Physical exam reveals patient to be alert. Vital signs stable. HEENT exam is unremarkable. Patient is anicteric. Lungs are clear to auscultation and percussion. Heart is without murmur or extra sounds. Abdominal exam bowel sounds are present soft nontender with no organomegaly.
[2021-02-17 08:58] VITALS: BP 105/66; PULSE 66; RESP 18; O2SAT 94
[2021-02-17 09:08] VITALS: BP 110/68; PULSE 64; RESP 18; O2SAT 95
[2021-02-17 09:18] VITALS: BP 121/77; PULSE 66; RESP 20; O2SAT 96
== END 2021-02-17 09:25 | disposition home or self-care (01) ==
PROVIDERS: PCP Family Medicine Adolescent Medicine; Visit Provider Internal Medicine Gastroenterology
PROC: 0DJ08ZZ Inspection of Upper Intestinal Tract, Via Natural or Artificial Opening Endoscopic (ICD-10-PCS; CPT 43235; principal; 2021-02-17 08:30)
DX: K25.4 Chronic or unspecified gastric ulcer with hemorrhage (principal); Z86.010 Personal history of colon polyps; F41.9 Anxiety disorder, unspecified; E66.9 Obesity, unspecified; Z68.37 Body mass index [BMI] 37.0-37.9, adult
CPT/HCPCS: 43239; 87081; J2704; J7120

== ENCOUNTER 2021-08-25 08:25 | Outpatient (CLI) | payer MEDICARE, SELFPAY ==
--- NOTE | ~2021-08-25 | CT_ITS ---
EXAMINATION: CT abdomen w con DATE: 08/25/2021 08:56 INDICATION: Left upper quadrant pain, tenderness. Tender ventral hernia. TECHNIQUE: Computed tomography (CT) of the abdomen and pelvis was performed with 100 cc Omnipaque 350 intravenous contrast. Automated exposure control and iterative reconstruction technique were employe d. Exam dose: 958.56 mGy-cm total exam DLP. COMPARISON: 12/05/2018 complete abdominal ultrasound examination 07/24/2016 CT abdomen FINDINGS: The lung bases are clear. Normal heart size. No pericardial or pleural effusion. Status post Daniel fundoplication. No hepatic space-occupying mass lesion is evident. Cholelithiasis is noted. Borderline thickening of the gallbladder wall. No pericholecystic fluid or f at stranding. No bile duct dilatation. No pancreatic mass lesion, calcification or ductal dilatation. Normal splenic size. Normal morphology of the adrenal glands. No renal mass lesion or urinary tract calculus or hydroureteronephrosis is evident. Normal caliber of the abdominal aorta; no abdominal aortic aneurysm. No intraperitoneal or retroperit rascon mass lesion or adenopathy or ascites. Duodenal diverticulum. Multiple diverticula of the ileum. There are numerous diverticula of the sigmoid and descending colon, splenic flexure and transverse co angie, hepatic flexure and to a lesser extent ascending colon; no CT evidence of diverticulitis. No bowel obstruction or intraperitoneal free air. There is a very large supraumbilical midline ventral abdominal wall hernia, measuring up to 16 cm tra nsverse dimension, 7 cm anteroposterior dimension and 12 cm vertical dimension with approximately 4.4 cm wide mouth, containing fat and a loop of transverse colon without strangulation or obstruction. Small fat-containing umbilical hernia. Moderate degenerative disc disease L2-3, L3-4. Severe degenerative disease at L4-5 and L5-S1. No susp icious osteolytic or osteoblastic lesions are noted. IMPRESSION: 7 x 12 x 16 cm supraumbilical ventral midline hernia containing a loop of nonobstructed transverse colon and fat Small fat-containing umbilical hernia Cholelithiasis, borderline gallbladder wall thickening Duodenal and ileal diverticula Diverticulosis of left and right colon; no CT evidence of diverticulitis Status post - fundoplication Reviewed, dictated and finalized at [facility]. Reviewed, dictated and finalized at location [facility]. OR DESIGN ENGINEERING SPECIALIST
== END 2021-08-25 08:26 | disposition home or self-care (01) ==
PROVIDERS: PCP Family Medicine Adolescent Medicine; Visit Provider Family Medicine Adolescent Medicine
DX: R10.12 Left upper quadrant pain (principal); K42.9 Umbilical hernia without obstruction or gangrene; K43.9 Ventral hernia without obstruction or gangrene; K80.20 Calculus of gallbladder without cholecystitis without obstruction; K57.10 Diverticulosis of small intestine without perforation or abscess without bleeding; Z98.890 Other specified postprocedural states
CPT/HCPCS: 74160; Q9967

== ENCOUNTER 2021-12-18 15:54 | Inpatient (IN) | payer MEDICARE, SELFPAY ==
[2021-12-18] VITALS (8 sets, daily range): BP systolic 105–118; BP diastolic 53–91; PULSE 85–106; RESP 12–22; TEMP 36.7–37.4; O2SAT 93–99; BMI 35.7
--- NOTE | ~2021-12-18 | CT_ITS ---
EXAMINATION: CT brain wo con DATE: 12/18/2021 16:41 INDICATION: Syncope. Trauma to the head. TECHNIQUE: Computed tomography (CT) of the head was performed without intravenous contrast. The dose- length product was 605.33 mGy-cm. Automated exposure control and iterative reconstruction technique w ere employed. COMPARISON: None FINDINGS: Mild generalized atrophy. There are scattered mild periventricular and subcortical white ma tter changes, most likely related to small vessel ischemic disease (microangiopathy). No acute intrac ranial hemorrhage, infarction, mass or mass effect. Basilar cisterns are patent. Paranasal sinuses an d mastoids are pneumatized. No depressed skull fractures. No depressed skull fractures. IMPRESSION: 1. No acute intracranial abnormality. 2: Chronic age-related findings. Reviewed, dictated and finalized at location [facility].
--- NOTE | ~2021-12-18 | XR_ITS ---
EXAMINATION: XR small bowel follow through DATE: 12/20/2021 18:15 INDICATION: GI bleeding TECHNIQUE: Circuit Rider radiograph(s) of the abdomen was/were obtained. Oral contrast was administered, and sequential radiographs of the abdomen were obtained until oral contrast was noted to be in the colon . COMPARISON: 04/21/2007 FINDINGS: Circuit Rider radiograph demonstrates surgical clips in the midabdomen. The bowel gas pattern is un remarkable. Transit time from the stomach to proximal colon was approximately two hours. There is nor mal caliber and mucosal fold pattern throughout the small bowel. There are multiple diverticula of th e jejunum. Terminal ileum is normal. IMPRESSION: 1. Jejunal diverticulosis. Reviewed, dictated and finalized at location [facility]. IMPRESSION: 1. Jejunal diverticulosis.
--- NOTE | 2021-12-18 16:04 | ECG_ITS ---
Measurements Intervals [place] Rate: 169 P: DE: 0 QRS: 29 QRSD: 102 T: -13 QT: 260 QTc: 436 Interpretive Statements SUPRAVENTRICULAR TACHYCARDIA ST-T WAVE ABNORMALITY IN INFERIOR LEADS- CONSIDER ISCHEMIA ABNORMAL ECG Electronically Signed On 12-18-2021 20:21:36 CDT by Luis A Fitzgerald D.O.
--- NOTE | 2021-12-18 16:05 | ED.GENADULT ---
HPI - General Adult General Chief complaint: Syncope Stated complaint: syncopy/bloody stools History of Present Illness HPI narrative: 66-year-old female with history of upper GI bleed presented to the emergency department for evaluation after having a syncopal episode. Patient states that yesterday she began having black tarry stool throughout the day and evening. Patient did take a Protonix yesterday. Patient states that this morning after having a bowel movement, which was also black and tarry, patient was walking back to her bed when she had onset of diaphoresis and dizziness and had a subsequent syncopal episode. Patient states she did fall to the ground and had complete loss of consciousness. Patient does not suspect that she struck her head. Patient was home alone and was able to ultimately get to the phone and called EMS. Patient did have an umbilical hernia repair on October 15 in [place]. Patient did finish a steroid taper just a few days ago. Patient does take intermittent Motrin. Patient has been taking diclofenac Patient did have a prior history of an upper GI bleed in October 2020 and had a EGD showing gastritis and superficial erosions of the body of the stomach. Patient was advised to take pantoprazole and had a rescoped on February 08 showing improvement. Patient states she has not been taking her pantoprazole regularly as of recently Related Data Home Medications Medication Instructions Recorded Confirmed cholecalciferol (vitamin D3) 100 100 mcg PO DAILY 11/01/20 09/11/21 mcg (4,000 unit) capsule cetirizine 10 mg tablet 10 mg PO DAILY PRN 08/21/21 09/11/21 diclofenac sodium 75 mg 75 mg PO BID PRN pain 08/21/21 09/11/21 tablet,delayed release Allergies Allergy/AdvReac Type Severity Reaction Status Date / Time No Known Allergies Allergy Verified 12/18/21 16:03 Review of Systems Review of Systems: CONSTITUTIONAL: Increased generalized weakness EYES: Denies visual changes, redness, or discharge. ENT: Denies rhinorrhea, congestion, sore throat, or otalgia. CARDIOVASCULAR: Denies chest pain, palpitations, or edema. RESPIRATORY: Denies cough or dyspnea. GASTROINTESTINAL: See HPI GENITOURINARY: Denies dysuria or hematuria. SKIN: Denies rash or itching. MUSCULOSKELETAL: Denies back pain, joint pain, or myalgia. NEUROLOGIC: See HPI PSYCHIATRIC: Denies anxiety or depression. PMFSH Past Medical History Medical History (Updated 12/18/21 @ 17:37 by Silas Méndez MD) Acute blood loss anemia 02/08 Anxiety Gastric peptic ulcer 02/08 History of colon polyps Large hiatal hernia Surgical History Surgical History (Updated 09/11/21 @ 11:26 by Jaki Boland) H/O colonoscopy with polypectomy 02/06 Repeat 02/11 History of fundoplication 06/27 Repair paraesophageal hernia History of repair of hiatal hernia Family History Family History Mother Cerebrovascular accident Family history of cardiovascular disease Depression Father Family history of cardiovascular disease Carcinoma of colon Colon polyp Diabetes mellitus Sibling Carcinoma of colon Depression Other Hypertension Social History Social History Social History: The patient is a lifelong nonsmoker. The patient is and desires to have her is a durable power health care attorney for healthcare. The patient is a full code. The patient has 3 children. 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 Smoking status: Never smoker Second hand tobacco smoke exposure: No Alcohol intake: never Substance use: never Substance use type: does not use Gender identity (if verbalized by the patient): Female Sexual Orientation (if Verbalized by the Patient): Straight or Heterosexual Spiritual care concerns: No Agree to blood products: Yes Exam Narrative: TITA
[2021-12-18] MEDS: PANTOPRAZOLE SODIUM IV 40 MG VIAL 80 MG IV PUSH (16:13)
[2021-12-18] MEDS: ONDANSETRON INJ 4 MG/2 ML VIAL IV PUSH (16:13)
[2021-12-18 16:24] LABS: Basophils Absolute Auto 0.1 K/mm3 (0.0-0.1); Basophils Percent Auto 0.4 % (0.2-1.2); Eosinophils Percent Auto 0.1 % (0-4.4); Hematocrit 34.2 % (37.0-47.0); Hemoglobin 10.6 g/dL (12.0-15.0); Immature Granulocyte Absolute 0.19 K/mm3 (0.00-0.031); Lymphocytes Absolute Auto 1.99 K/mm3 (0.9-3.2); Lymphocytes Percent Auto 10.9 % (18.3-44.2); Mean Corpuscular Hemoglobin 30.2 pg (26-34); Mean Corpuscular Volume 97.4 fl (80-100); Mean Platelet Volume 9.8 fl (7.4-10.4); Monocytes Absolute Auto 0.8 K/mm3 (0.1-0.6); Monocytes Percent Auto 4.3 % (2.6-8.5); Neutrophils Absolute Auto 15.2 K/mm3 (1.3-6.7); Neutrophils Percent Auto 83.3 % (45.5-73.1); Platelet Count Result 370 k/mm3 (150-375); Red Blood Count 3.51 M/mm3 (4.2-5.4); Red Cell Distribution Width 13.7 % (11.5-14.5); White Blood Count 18.2 K/mm3 (4.5-10.0)
[2021-12-18 16:32] LABS: Lactic Acid Reflex 3.7 mmol/L (0.7-2.0)
[2021-12-18 16:33] LABS: INR 1.1
[2021-12-18 16:35] LABS: Partial Thromboplastin Time 24.1 SECONDS (22.3-36.8)
[2021-12-18 16:36] LABS: Alanine Aminotransferase 24 U/L (6-35); Albumin Level 3.1 g/dL (3.5-5.1); Alkaline Phosphatase 57 U/L (38-126); Anion Gap 8 mmol/L (8-16); Aspartate Amino Transferase 31 U/L (14-36); Bilirubin,Total 0.4 mg/dL (0.2-1.3); Blood Urea Nitrogen 43 mg/dL (7-17); Calcium 7.6 mg/dL (8.4-10.2); Carbon Dioxide 18 mmol/L (22-30); Chloride 112 mmol/L (98-107); Estimated CRCL calculation 89 ml/min; Estimated Glomerular Filt Rate > 60; Glucose 168 mg/dL (65-110); Potassium 3.8 mmol/L (3.4-5.0); Sodium 138 mmol/L (137-145)
[2021-12-18] MEDS: SODIUM CHLORIDE 0.9% IV 1,000 ML 250 ML IV CONT (17:07)
--- NOTE | 2021-12-18 17:27 | PC.NURSE ---
1720 RN noted pt. HR to be 173 erp at pt. bedside. pt. placed on manufacturing technologist and life karoline. 1725 pt. given 6mg Adenosine IVP VORB ERP Dev. pt. tolerated procedure well and HR. found to be 103. pt. alert and oriented x4 at this time.
[2021-12-18] MEDS: METOCLOPRAMIDE HCL INJ 10 MG/2 ML VIAL IV PUSH (17:37)
[2021-12-18 18:56] LABS: Hematocrit 31.6 % (37.0-47.0); Hemoglobin 9.6 g/dL (12.0-15.0)
--- NOTE | 2021-12-18 19:06 | ADMGEN ---
This patient, Deena Damon, was admitted to IMU Room 210-01 at 1904. Patient/family oriented to hospital policies and general routines including ID bracelet, bed and alarms, visiting hours, pain management, procedures, bathroom and other care routines, personal items, smoking policy, room service/diet, and visiting hours. Information on how to activate the Rapid Response Team has been discussed. Patient/Family are encouraged to report perceived risks to care and to ask questions if they do not understand what they are told or what they should do.
[2021-12-18 19:21] LABS: Reflex Lactic Acid Yes or No Add Lactic
[2021-12-18 19:43] LABS: Lactic Acid 3.3 mmol/L (0.7-2.0)
--- NOTE | 2021-12-18 21:40 | PM.IMHP ---
H&P: HPI History of Present Illness Date/Time: Patient was placed observation status for expected length of stay less than 23 hours for management, will plan to re-evaluate tomorrow for improvement. 12/18/21 21:40 Chief Complaint: Syncope Narrative: Ms. Damon is a 58-year-old female who presented emergency room with complaints of syncopal episode and dark diarrhea stools. Patient states that approximately midnight last evening she started having black diarrhea type stools. Patient states she had approximately 10 of them last evening. Patient states that she was in the bathroom and got up to go back to bed and as she was walking and she had lightheadedness and dizziness and the next thing she knows she woke up on the floor. Patient states that she called her son-in-law at that point and he called EMS. Patient states she has a known history of GI bleeding gastritis and she was to be taking pantoprazole, but she quit taking this 6 months ago. Patient states that she recently started taking diclofenac for arthritis last Saturday or . Patient denies any chest pain, shortness a breath, or palpitations. Upon evaluation emergency room patient did have a positive Hemoccult stool. patient states she did have an umbilical hernia repair on October 15 in [place]. Patient states she also finished a steroid taper secondary to a URI. While in the emergency room patient patient wanted to vomit and started dry heaving, but she has a history of laparoscopic fundoplication and is unable to vomit. Patient subsequently went to a supraventricular tachycardia and was given adenosine 6 mg and converted back to normal sinus rhythm. Patient was also placed on a Protonix drip while in the emergency room. Patient states he has a known history of peptic ulcer disease and GI bleed and was supposed to be taking pantoprazole which she has not been. Patient states she also started diclofenac for pain. Review of Systems Review of Systems: A 12 point review of systems was completed patient all pertinent positive and negative per HPI the remainder are unremarkable. [facility] Past Medical History Medical History (Updated 12/18/21 @ 17:37 by Silas Méndez MD) Acute blood loss anemia 02/08 Anxiety Gastric peptic ulcer 02/08 History of colon polyps Large hiatal hernia Surgical History Surgical History (Updated 09/11/21 @ 11:26 by Jaki Boland) H/O colonoscopy with polypectomy 02/06 Repeat 02/11 History of fundoplication 06/27 Repair paraesophageal hernia History of repair of hiatal hernia Family History Family History Mother Cerebrovascular accident Family history of cardiovascular disease Depression Father Family history of cardiovascular disease Carcinoma of colon Colon polyp Diabetes mellitus Sibling Carcinoma of colon Depression Other Hypertension Social History Social History Social History: The patient is a lifelong nonsmoker. The patient is and desires to have her is a durable power assistant district attorney for healthcare. The patient is a full code. The patient has 3 children. 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 Smoking status: Never smoker Second hand tobacco smoke exposure: No Alcohol intake: never Substance use: never Substance use type: does not use Gender identity (if verbalized by the patient): Female Sexual Orientation (if Verbalized by the Patient): Straight or Heterosexual Spiritual care concerns: No Agree to blood products: Yes Meds Home Medications and Allergies Home Medications Medication Instructions Recorded Confirmed Type cholecalciferol (vitamin D3) 100 100 mcg PO DAILY 11/01/20 12/18/21 History mcg (4,000 unit) capsule pantoprazole 40 mg tablet,delayed 40 mg PO BID 3 months #180 tabs
[2021-12-18] MEDS: SODIUM CHLORIDE 0.9% IV 1,000 ML 100 ML IV CONT (23:08)
[2021-12-18 23:37] LABS: Hematocrit 27.9 % (37.0-47.0)
[2021-12-18 23:46] LABS: Lactic Acid Reflex 1.6 mmol/L (0.7-2.0)
[2021-12-19] VITALS (16 sets, daily range): BP systolic 104–129; BP diastolic 56–80; PULSE 71–91; RESP 16–28; TEMP 35.9–36.8; O2SAT 97–100
[2021-12-19 05:00] LABS: Basophils Absolute Auto 0.1 K/mm3 (0.0-0.1); Basophils Percent Auto 0.4 % (0.2-1.2); Eosinophils Percent Auto 0.3 % (0-4.4); Hematocrit 25.8 % (37.0-47.0); Hemoglobin 8.2 g/dL (12.0-15.0); Immature Granulocyte Absolute 0.12 K/mm3 (0.00-0.031); Immature Granulocyte Percent A 0.9 % (0-0.5); Lymphocytes Absolute Auto 2.58 K/mm3 (0.9-3.2); Lymphocytes Percent Auto 18.5 % (18.3-44.2); Mean Corpuscular HGB Conc 31.8 g/dl (32-36); Mean Corpuscular Hemoglobin 30.3 pg (26-34); Mean Corpuscular Volume 95.2 fl (80-100); Mean Platelet Volume 9.8 fl (7.4-10.4); Monocytes Absolute Auto 0.8 K/mm3 (0.1-0.6); Monocytes Percent Auto 5.9 % (2.6-8.5); Neutrophils Absolute Auto 10.4 K/mm3 (1.3-6.7); Platelet Count Result 274 k/mm3 (150-375); Red Blood Count 2.71 M/mm3 (4.2-5.4)
[2021-12-19 05:14] LABS: Alanine Aminotransferase 16 U/L (6-35); Albumin Level 2.6 g/dL (3.5-5.1); Alkaline Phosphatase 55 U/L (38-126); Anion Gap 4 mmol/L (8-16); Aspartate Amino Transferase 18 U/L (14-36); Bilirubin,Total < 0.1 mg/dL (0.2-1.3); Blood Urea Nitrogen 40 mg/dL (7-17); Calcium 7.3 mg/dL (8.4-10.2); Carbon Dioxide 21 mmol/L (22-30); Chloride 114 mmol/L (98-107); Estimated CRCL calculation 85 ml/min; Estimated Glomerular Filt Rate > 60; Glucose 110 mg/dL (65-110); Potassium 3.9 mmol/L (3.4-5.0); Sodium 139 mmol/L (137-145)
[2021-12-19] MEDS: SODIUM CHLORIDE 0.9% IV 1,000 ML 100 ML IV CONT ×2 (09:02→20:56)
--- NOTE | 2021-12-19 09:04 | WPDGICN ---
Assessment and Plan Assessment and plan (1) Acute upper gastrointestinal bleeding: Code(s): K92.2 - Gastrointestinal hemorrhage, unspecified Status: Acute Assessment and Plan: Patient has recurrent GI bleeding with melena appears to be recurrent upper GI bleeding. She has a history of a gastric ulcer identified 1 year ago. Initially felt to be secondary to NSAID use. She recently has restarted this with respiratory difficulties. Plan is for follow-up EGD today. Continue to monitor hemoglobin. Further recommendations will be given after endoscopy. (2) H/O colonoscopy with polypectomy: Code(s): Z98.890 - Other specified postprocedural states; Z86.010 - Personal history of colonic polyps Status: Acute Assessment and Plan: Patient has a history of colon polyps 2018. Plan is for surveillance colonoscopy at 5 year intervals. Anticipate follow-up colonoscopy 2023. GI Consult Note Consult date/time: 12/19/21 09:04 Reason for consult: GI bleeding HPI: Deena Damon is a 66 year old female presented with melena that began over the last 2 days. She experienced a syncopal episode prompting her to come to the emergency room. Patient denies any abdominal pain. She does have a history of a gastric ulcer identified 1 year ago. At that time felt to be secondary to nonsteroidal anti-inflammatory agents. Follow-up EGD documented healing. Over the last year she has stopped PPI therapy. She has had respiratory difficulties for which she was on steroids and once again nonsteroidal anti-inflammatory agents. Patient has a past medical history of a paraesophageal hiatal hernia repair with fundoplication. She also has a history of colon polyps identified most recently 2018. Family history is noncontributory. Patient admitted to the hospital last evening for evaluation her hemoglobin has declined overnight some degree. She no longer has a frequent black stools but this was noted yesterday. Review of Systems Review of Systems: Review of systems noncontributory. [facility] Past Medical History Medical History (Updated 12/18/21 @ 17:37 by Silas Méndez MD) Acute blood loss anemia 02/08 Anxiety Gastric peptic ulcer 02/08 History of colon polyps Large hiatal hernia Surgical History Surgical History (Updated 12/19/21 @ 09:07 by Medhat Garces MD) H/O colonoscopy with polypectomy 02/06 Repeat 02/11 History of fundoplication 06/27 Repair paraesophageal hernia History of repair of hiatal hernia Family History Family History Mother Cerebrovascular accident Family history of cardiovascular disease Depression Father Family history of cardiovascular disease Carcinoma of colon Colon polyp Diabetes mellitus Sibling Carcinoma of colon Depression Other Hypertension Social History Social History Social History: The patient is a lifelong nonsmoker. The patient is and desires to have her is a durable power contract attorney for healthcare. The patient is a full code. The patient has 3 children. 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 Smoking status: Never smoker Second hand tobacco smoke exposure: No Alcohol intake: never Substance use: never Substance use type: does not use Gender identity (if verbalized by the patient): Female Sexual Orientation (if Verbalized by the Patient): Straight or Heterosexual Spiritual care concerns: No Agree to blood products: Yes Meds Home Medications and Allergies Home Medications Medication Instructions Recorded Confirmed Type cholecalciferol (vitamin D3) 100 100 mcg PO DAILY 11/01/20 12/18/21 History mcg (4,000 unit) capsule pantoprazole 40 mg tablet,delayed 40 mg PO BID 3 months #180 tabs 11/02/20 12/18/21 Rx release alpraz
--- NOTE | 2021-12-19 09:26 | PM.IMPN ---
Progress Note: A&P Assessment and Plan (1) Acute upper gastrointestinal bleeding: Code(s): K92.2 - Gastrointestinal hemorrhage, unspecified <Anca Grewal PA-C - Last Filed: 12/19/21 16:23> Status: Acute <Anca SherryLucien Grewal PA-C - Last Filed: 12/19/21 16:23> Assessment and Plan: Patient was Hemoccult positive in ER and does have a significant history for upper GI bleeds D/T NSAID use, which she recently re-started. Patient does have positive Hemoccult stool. Patient is being kept NPO at this point time. Patient is on a Protonix drip. Will continue to trend hemoglobin and hematocrits and transfuse patient if her hemoglobin goes less than 7. Home meds are on hold as patient is currently NPO. GI has been consulted and plans proceed with EGD, which showed no obvious upper GI source for bleeding. Will proceed with colonoscopy tomorrow with prep tonight. Pt NPO after midnight. Continue IVF as patient BUN is elevated today with normal Cr. Hemoglobin 8.2 this morning, down from 9.0 yesterday. Continue to trend Q6Hrs. Continue IV protonix <Anca Grewal PA-C - Last Filed: 12/19/21 16:23> (2) Paroxysmal SVT (supraventricular tachycardia): Code(s): I47.1 - Supraventricular tachycardia <Anca Grewal PA-C - Last Filed: 12/19/21 16:23> Status: Acute <Anca Grewal PA-C - Last Filed: 12/19/21 16:23> Assessment and Plan: Patient did have an episode of supraventricular tachycardia that occurred when she was trying to vomit, but she is unable to vomit secondary to her laparoscopic fundoplication. Patient was given 6 mg of IV adenosine and subsequently converted into normal sinus rhythm. Will continue to monitor patient on telemetry. Pt stable today without any reoccurrence of SVT or syncopal episodes. <Anca Grewal PA-C - Last Filed: 12/19/21 16:23> (3) Vasovagal syncope: Code(s): R55 - Syncope and collapse <Anca Grewal PA-C - Last Filed: 12/19/21 16:23> Status: Acute <Anca Grewal PA-C - Last Filed: 12/19/21 16:23> Assessment and Plan: Pt reported passing out at home after a bowel movement. Patient denies any chest pain, shortness a breath, or palpitations.?ECG showed SVT (Patient did convert with adenosine in the ER). Head CT showed no acute intracranial abnormality. BP's have been stable. Will place patient on bed rest and monitor patient closely. Once patient has undergone colonoscopy and bleeding is under control will allow patient to ambulate and can monitor orthostatic blood pressures and pulses. Ca 7.3- started OSCAL BID Mg 2.0- trend K 3.9- trend <Anca Grewal PA-C - Last Filed: 12/19/21 16:23> (4) Leukocytosis: Code(s): D72.829 - Elevated white blood cell count, unspecified <Anca Grewal PA-C - Last Filed: 12/19/21 16:23> Status: Acute <Anca Grewal PA-C - Last Filed: 12/19/21 16:23> Assessment and Plan: WBC 18 upon admission. Improved today at 14. Patient remains afebrile without obvious source of infection. Will obtain UA and continue to trend. Of note, patient does report recent steroid taper x 2 weeks ago secondary to URI. <Anca Grewal PA-C - Last Filed: 12/19/21 16:23> Additional Plan Patient does have anxiety for which she takes alprazolam and lexapro. Will continue these for the patient while here. <Anca Grewal PA-C - Last Filed: 12/19/21 16:23> Subjective Date/time seen: 12/19/21 09:26 <Anca Grewal PA-C - Last Filed: 12/19/21 16:23> Interval history: 66-year-old female with past medical history of peptic ulcer disease, GI bleed, and anxiety, who recently discontinued her PPI, who presents for black diarrhea stools times 10 last evening with 1 episode syncope. Patient reports she is feeling well today, denies chest pain, shortness of breath, abdominal pain, palpitations, dizziness, syncope. She continues to hav
[2021-12-19] MEDS: LACTATED RINGERS 1,000 ML 150 ML IV CONT (10:52)
--- NOTE | 2021-12-19 11:00 | WPDANESEPPF ---
Anes - Initial Pre Proc Eval Procedure: Operation Date: 12/19/21 12:30 Proposed Procedures p Esophagogastroduodenoscopy - Medhat Garces MD Date/Time: 12/19/21 11:00 Surgeon: Anca Grewal PA-C Pre Op Diagnosis: SVT, syncope, GI bleed, melena Patient Data Age: 66 Gender: F Height: 1.63 m Weight: 94.4 kg Last Vital Signs Temp 36.5 C 12/19/21 10:49 Pulse 87 12/19/21 10:49 Resp 18 12/19/21 10:49 BP 125/68 12/19/21 10:49 Pulse Ox 100 12/19/21 10:49 O2 Del Method Room Air 12/19/21 10:49 Allergies Allergy/AdvReac Type Severity Reaction Status Date / Time No Known Allergies Allergy Verified 12/19/21 10:46 Home Medications Medication Instructions Recorded Confirmed Type cholecalciferol (vitamin D3) 100 100 mcg PO DAILY 11/01/20 12/18/21 History mcg (4,000 unit) capsule pantoprazole 40 mg tablet,delayed 40 mg PO BID 3 months #180 tabs 11/02/20 12/18/21 Rx release alprazolam 0.25 mg tablet 0.25 mg PO BID PRN anxiety #30 tabs 08/21/21 12/18/21 Rx cetirizine 10 mg tablet 10 mg PO DAILY PRN Allergic 08/21/21 12/18/21 History Reaction diclofenac sodium 75 mg 75 mg PO BID PRN pain 08/21/21 12/18/21 History tablet,delayed release escitalopram oxalate 10 mg tablet 10 mg PO DAILY #90 tabs 09/06/21 12/18/21 Rx (Lexapro) Laboratory Tests 12/18/21 12/18/21 12/18/21 16:08 16:08 16:08 WBC 18.2 K/mm3 H K/mm3 (4.5-10.0) RBC 3.51 M/mm3 L M/mm3 (4.2-5.4) Hgb 10.6 g/dL L g/dL (12.0-15.0) Hct 34.2 % L % (37.0-47.0) MCV 97.4 fl fl (80-100) MCH 30.2 pg pg (26-34) MCHC 31.0 g/dl L g/dl (32-36) RDW 13.7 % % (11.5-14.5) Plt Count 370 k/mm3 k/mm3 (150-375) MPV 9.8 fl fl (7.4-10.4) Immature Gran % (Auto) 1.0 % H % (0-0.5) Neut % (Auto) 83.3 % H % (45.5-73.1) Lymph % (Auto) 10.9 % L % (18.3-44.2) [place] % (Auto) 4.3 % % (2.6-8.5) Eos % (Auto) 0.1 % % (0-4.4) Baso % (Auto) 0.4 % % (0.2-1.2) Lymph # (Auto) 1.99 K/mm3 K/mm3 (0.9-3.2) [place] # (Auto) 0.8 K/mm3 H K/mm3 (0.1-0.6) Eos # (Auto) 0.0 K/mm3 K/mm3 (0-0.3) Baso # (Auto) 0.1 K/mm3 K/mm3 (0.0-0.1) Abs Immat Gran (auto) 0.19 K/mm3 H K/mm3 (0.00-0.031) Absolute Neuts (auto) 15.2 K/mm3 H K/mm3 (1.3-6.7) Absolute Nucleated RBC 0.0 K/mm3 K/mm3 (0.0-0.012) Nucleated RBC % 0.0 % % (0.0-0.2) PT 14.0 Seconds Seconds (11.1-14.7) INR 1.1 APTT 24.1 SECONDS SECONDS (22.3-36.8) Sodium 138 mmol/L mmol/L (137-145) Potassium 3.8 mmol/L mmol/L (3.4-5.0) Chloride 112 mmol/L H mmol/L (98-107) Carbon Dioxide 18 mmol/L L mmol/L (22-30) Anion Gap 8 mmol/L mmol/L (8-16) BUN 43 mg/dL H D mg/dL (7-17) Creatinine 0.60 mg/dL L mg/dL (0.7-1.0) Estim Creat Clear Calc 89 ml/min ml/min Estimated GFR > 60 (59 - ) Glucose 168 mg/dL H mg/dL (65-110) Lactic Acid Calcium 7.6 mg/dL L mg/dL (8.4-10.2) Magnesium Total Bilirubin 0.4 mg/dL mg/dL (0.2-1.3) AST 31 U/L U/L (14-36) ALT 24 U/L U/L (6-35) Alkaline Phosphatase 57 U/L U/L (38-126) Total Protein 6.0 g/dL L g/dL (6.3-8.2) Albumin 3.1 g/dL L g/dL (3.5-5.1) Blood Type Antibody Screen 12/18/21 12/18/21 12/18/21 16:08 16:15 18:49 WBC RBC Hgb 9.6 g/dL L g/dL (12.0-15.0) Hct 31.6 % L % (37.0-47.0) MCV MCH MCHC RDW Plt Count MPV Immature Gran % (Auto) Neut % (Auto) Lymph % (Auto) [place] % (Auto
[2021-12-19] MEDS: BENZOCAINE (*SP) 60 ML SPRAY CAN (HURRICAINE) 1 SPRAY MUCOUS MEM (11:32)
--- NOTE | 2021-12-19 11:43 | PCPTNOTE ---
Attempted PT evaluation, patient currently getting an EDG. will follow.
[2021-12-19] MEDS: PEG (High)/E-LYTE SOLN 4,000 ML BTL 4000 ML PO (12:29)
[2021-12-19 13:00] LABS: Hematocrit 29.3 % (37.0-47.0)
[2021-12-19] MEDS: ESCITALOPRAM OXALATE 10 MG TABLET PO (14:17)
--- NOTE | 2021-12-19 15:38 | PC.NURSE ---
This patient, Deena Damon, was transferred from IMU report received from Zoya CONTI, transferred to [facility] Surg Room 311-01. Patient/family oriented to hospital policies and general routines including ID bracelet, bed and alarms, visiting hours, pain management, procedures, bathroom and other care routines, personal items, smoking policy, room service/diet, and visiting hours. Information on how to activate the Rapid Response Team has been discussed. Patient/Family are encouraged to report perceived risks to care and to ask questions if they do not understand what they are told or what they should do.
--- NOTE | 2021-12-19 15:47 | PC.NURSE ---
bowel prep started pt aware for bowel prep procedure.
[2021-12-19 16:30] LABS: Hematocrit 30.6 % (37.0-47.0); Hemoglobin 9.3 g/dL (12.0-15.0)
[2021-12-19] MEDS: CALCIUM CARBONATE (OSCAL) 500 MG TABLET PO (17:02)
--- NOTE | 2021-12-19 17:50 | PC.NURSE ---
ua sent to lab for analysis.
[2021-12-19 17:55] LABS: Appearance Urine Clear (Clear); Bilirubin Urine Negative (Negative); Blood Urine Negative (Negative); Color Urine Yellow (Yellow); Glucose Urine UA Negative (Negative); Ketones Urine Negative (Negative); Leukocyte Esterase Ur Negative LEU/UL (Negative); Nitrate Urine Negative (Negative); Protein Urine Negative (Negative); Specific Grav Ur <= 1.005 (1.001-1.035); Urobilinogen Urine 0.2 mg/dL (<2.0); pH Urine 5.5 (5.0-9.0)
[2021-12-19 17:56] LABS: Add Urine Microscopic? NO
[2021-12-20] VITALS (10 sets, daily range): BP systolic 100–128; BP diastolic 48–88; PULSE 77–87; RESP 18–26; TEMP 36.1–36.6; O2SAT 94–100
[2021-12-20] MEDS: SODIUM CHLORIDE 0.9% IV 1,000 ML 100 ML IV CONT (06:15)
[2021-12-20 06:35] LABS: Hematocrit 23.2 % (37.0-47.0); Hemoglobin 7.1 g/dL (12.0-15.0)
[2021-12-20 07:20] LABS: Basophils Absolute Auto 0.1 K/mm3 (0.0-0.1); Basophils Percent Auto 0.7 % (0.2-1.2); Eosinophils Absolute Auto 0.3 K/mm3 (0-0.3); Eosinophils Percent Auto 3.4 % (0-4.4); Hematocrit 22.4 % (37.0-47.0); Hemoglobin 7.3 g/dL (12.0-15.0); Immature Granulocyte Absolute 0.03 K/mm3 (0.00-0.031); Immature Granulocyte Percent A 0.4 % (0-0.5); Lymphocytes Absolute Auto 2.43 K/mm3 (0.9-3.2); Lymphocytes Percent Auto 29.1 % (18.3-44.2); Mean Corpuscular HGB Conc 32.6 g/dl (32-36); Mean Corpuscular Hemoglobin 30.9 pg (26-34); Mean Corpuscular Volume 94.9 fl (80-100); Mean Platelet Volume 10.1 fl (7.4-10.4); Monocytes Absolute Auto 0.6 K/mm3 (0.1-0.6); Neutrophils Percent Auto 59.4 % (45.5-73.1); Platelet Count Result 245 k/mm3 (150-375); Red Blood Count 2.36 M/mm3 (4.2-5.4); Red Cell Distribution Width 14.1 % (11.5-14.5); White Blood Count 8.3 K/mm3 (4.5-10.0)
[2021-12-20 07:49] LABS: Alanine Aminotransferase 16 U/L (6-35); Albumin Level 2.4 g/dL (3.5-5.1); Alkaline Phosphatase 51 U/L (38-126); Anion Gap 3 mmol/L (8-16); Aspartate Amino Transferase 21 U/L (14-36); Bilirubin,Total 0.2 mg/dL (0.2-1.3); Blood Urea Nitrogen 14 mg/dL (7-17); Calcium 7.5 mg/dL (8.4-10.2); Carbon Dioxide 22 mmol/L (22-30); Chloride 112 mmol/L (98-107); Estimated CRCL calculation 74 ml/min; Estimated Glomerular Filt Rate > 60; Glucose 99 mg/dL (65-110); Potassium 3.5 mmol/L (3.4-5.0); Sodium 137 mmol/L (137-145)
--- NOTE | 2021-12-20 10:15 | PM.IMPN ---
Progress Note: A&P Assessment and Plan (1) Acute upper gastrointestinal bleeding: Code(s): K92.2 - Gastrointestinal hemorrhage, unspecified Status: Acute Assessment and Plan: Hemoccult positive in ER history for upper GI bleeds D/T NSAID use, which she recently re-started. trend hemoglobin and hematocrits transfuse patient if her hemoglobin goes less than 7 GI has been consulted EGD showed no obvious upper GI source for bleeding. Colonoscopy performed found diverticulosis clear liquid diet Hemoglobin 7.0/22.0 Continue IV Protonix (2) Paroxysmal SVT (supraventricular tachycardia): Code(s): I47.1 - Supraventricular tachycardia Status: Acute Assessment and Plan: Episode of supraventricular tachycardia that occurred when she was trying to vomit 6 mg of IV adenosine and subsequently converted into normal sinus rhythm monitor telemetry Pt stable today without any reoccurrence of SVT or syncopal episodes. (3) Vasovagal syncope: Code(s): R55 - Syncope and collapse Status: Acute Assessment and Plan: Syncopal episode reported by the patient after BM ECG showed SVT (Patient did convert with adenosine in the ER) Head CT showed no acute intracranial abnormality BP's have been stable No recurrent episode reported at this time (4) Leukocytosis: Code(s): D72.829 - Elevated white blood cell count, unspecified Status: Acute Assessment and Plan: WBC 18 upon admission Improved today at 8.3 Remains afebrile without obvious source of infection UA does not appear to be infectious Of note, patient does report recent steroid taper x 2 weeks ago secondary to URI Trending down (5) Diverticulosis: Code(s): K57.90 - Diverticulosis of intestine, part unspecified, without perforation or abscess without bleeding Status: Acute Assessment and Plan: Found on the colonoscopy GI consulted Currently on clear liquids (6) Anxiety: Code(s): F41.9 - Anxiety disorder, unspecified Status: Chronic Assessment and Plan: continue home alprazolam and lexapro Time Spent With Patient Time with patient: Greater than 35 minutes Subjective Date/time seen: 12/20/21 1015 Interval history: 12/20/21 1015 Patient was up walking around in the room. She really did not have many complaints. She did state that she was weak and tired. She did state that she is still having some red stool. She also stated that she is feeling well. She denies any chest pain, shortness of breath, nausea, vomiting. She did state that she is hungry and would like to have something to eat. 12/19/21? 09:26 Interval history: 66-year-old female with past medical history of peptic ulcer disease, GI bleed, and anxiety, who recently discontinued her PPI, who presents for black diarrhea stools times 10 last evening with 1 episode syncope.? Patient reports she is feeling well today, denies chest pain, shortness of breath, abdominal pain, palpitations, dizziness, syncope. She continues to have dark bowel movements. She denies history of prior syncopal episodes. She states she had some popcorn the other day and was worried maybe she had diverticulitis, though she does deny any LLQ pain. 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 Damon? is a 58-year-old female who presented emergency room with complaints of syncopal episode and dark diarrhea stools.? Patient states that approximately midnight last evening she started having black diarrhea type stools.? Patient states she had approximately 10 of them last evening.? Patient states that she was in the bathroom and got up to go back to bed and as she was walking and she had lightheadedness and dizziness and the next thing she knows she woke up on the floor.? Patient states that she called her son-in-law at that point and he called EMS.? Patient sta
--- NOTE | 2021-12-20 10:15 | P.PNIM_ITS ---
Progress Note: A&P Assessment and Plan (1) Acute upper gastrointestinal bleeding: Code(s): K92.2 - Gastrointestinal hemorrhage, unspecified Status: Acute Assessment and Plan: * Hemoccult positive in ER * history for upper GI bleeds D/T NSAID use, which she recently re-started. * trend hemoglobin and hematocrits * transfuse patient if her hemoglobin goes less than 7 * GI has been consulted * EGD showed no obvious upper GI source for bleeding. * Colonoscopy performed found diverticulosis * clear liquid diet * Hemoglobin 7.0/22.0 * Continue IV Protonix (2) Paroxysmal SVT (supraventricular tachycardia): Code(s): I47.1 - Supraventricular tachycardia Status: Acute Assessment and Plan: * Episode of supraventricular tachycardia that occurred when she was trying to vomit * 6 mg of IV adenosine and subsequently converted into normal sinus rhythm * monitor telemetry * Pt stable today without any reoccurrence of SVT or syncopal episodes. (3) Vasovagal syncope: Code(s): R55 - Syncope and collapse Status: Acute Assessment and Plan: * Syncopal episode reported by the patient after BM * ECG showed SVT (Patient did convert with adenosine in the ER) * Head CT showed no acute intracranial abnormality * BP's have been stable * No recurrent episode reported at this time (4) Leukocytosis: Code(s): D72.829 - Elevated white blood cell count, unspecified Status: Acute Assessment and Plan: * WBC 18 upon admission * Improved today at 8.3 * Remains afebrile without obvious source of infection * UA does not appear to be infectious * Of note, patient does report recent steroid taper x 2 weeks ago secondary to URI * Trending down (5) Diverticulosis: Code(s): K57.90 - Diverticulosis of intestine, part unspecified, without perforation or abscess without bleeding Status: Acute Assessment and Plan: * Found on the colonoscopy * GI consulted * Currently on clear liquids (6) Anxiety: Code(s): F41.9 - Anxiety disorder, unspecified Status: Chronic Assessment and Plan: * continue home alprazolam and lexapro Time Spent With Patient Time with patient: Greater than 35 minutes Subjective Date/time seen: 12/20/21 1015 Interval history: 12/20/21 1015 Patient was up walking around in the room. She really did not have many complaints. She did state that she was weak and tired. She did state that she is still having some red stool. She also stated that she is feeling well. She denies any chest pain, shortness of breath, nausea, vomiting. She did state that she is hungry and would like to have something to eat. 12/19/21? 09:26 Interval history: 66-year-old female with past medical history of peptic ulcer disease, GI bleed, and anxiety, who recently discontinued her PPI, who presents for black diarrhea stools times 10 last evening with 1 episode syncope.? Patient reports she is feeling well today, denies chest pain, shortness of breath, abdominal pain, palpitations, dizziness, syncope. She continues to have dark bowel movements. She denies history of prior syncopal episodes. She states she had some popcorn the other day and was worried maybe she had diverticulitis, though she does deny any LLQ pain. 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 is a 58-year-old female who prese
--- NOTE | 2021-12-20 13:11 | PC.NURSE ---
Patient transferred to GI Lab 1305.
[2021-12-20] MEDS: LACTATED RINGERS 1,000 ML 150 ML IV CONT (13:24)
--- NOTE | 2021-12-20 13:48 | WPDANESEPPF ---
Anes - Initial Pre Proc Eval Procedure: Operation Date: 12/19/21 12:30 Proposed Procedures p Esophagogastroduodenoscopy - Medhat Garces MD Operation Date: 12/20/21 13:30 Proposed Procedures p Colonoscopy - Medhat Garces MD Date/Time: 12/20/21 13:48 Surgeon: Anca Grewal PA-C Pre Op Diagnosis: SVT, syncope, GI bleed, melena Patient Data Age: 66 Gender: F Height: 1.63 m Weight: 95.5 kg Last Vital Signs Temp 97.9 F 12/20/21 13:19 Pulse 78 12/20/21 13:19 Resp 18 12/20/21 13:19 BP 111/52 L 12/20/21 13:19 Pulse Ox 99 12/20/21 13:19 O2 Del Method Room Air 12/20/21 13:19 Allergies Allergy/AdvReac Type Severity Reaction Status Date / Time No Known Allergies Allergy Verified 12/20/21 13:17 Home Medications Medication Instructions Recorded Confirmed Type cholecalciferol (vitamin D3) 100 100 mcg PO DAILY 11/01/20 12/18/21 History mcg (4,000 unit) capsule pantoprazole 40 mg tablet,delayed 40 mg PO BID 3 months #180 tabs 11/02/20 12/18/21 Rx release alprazolam 0.25 mg tablet 0.25 mg PO BID PRN anxiety #30 tabs 08/21/21 12/18/21 Rx cetirizine 10 mg tablet 10 mg PO DAILY PRN Allergic 08/21/21 12/18/21 History Reaction diclofenac sodium 75 mg 75 mg PO BID PRN pain 08/21/21 12/18/21 History tablet,delayed release escitalopram oxalate 10 mg tablet 10 mg PO DAILY #90 tabs 09/06/21 12/18/21 Rx (Lexapro) Laboratory Tests 12/19/21 12/19/21 12/20/21 16:26 17:45 05:45 WBC 8.3 K/mm3 K/mm3 (4.5-10.0) RBC 2.36 M/mm3 L M/mm3 (4.2-5.4) Hgb 9.3 g/dL L g/dL 7.3 g/dL L g/dL (12.0-15.0) (12.0-15.0) Hct 30.6 % L % 22.4 % L % (37.0-47.0) (37.0-47.0) MCV 94.9 fl fl (80-100) MCH 30.9 pg pg (26-34) MCHC 32.6 g/dl g/dl (32-36) RDW 14.1 % % (11.5-14.5) Plt Count 245 k/mm3 k/mm3 (150-375) MPV 10.1 fl fl (7.4-10.4) Immature Gran % (Auto) 0.4 % % (0-0.5) Neut % (Auto) 59.4 % % (45.5-73.1) Lymph % (Auto) 29.1 % % (18.3-44.2) [place] % (Auto) 7.0 % % (2.6-8.5) Eos % (Auto) 3.4 % % (0-4.4) Baso % (Auto) 0.7 % % (0.2-1.2) Lymph # (Auto) 2.43 K/mm3 K/mm3 (0.9-3.2) [place] # (Auto) 0.6 K/mm3 K/mm3 (0.1-0.6) Eos # (Auto) 0.3 K/mm3 K/mm3 (0-0.3) Baso # (Auto) 0.1 K/mm3 K/mm3 (0.0-0.1) Abs Immat Gran (auto) 0.03 K/mm3 K/mm3 (0.00-0.031) Absolute Neuts (auto) 5.0 K/mm3 K/mm3 (1.3-6.7) Absolute Nucleated RBC 0.0 K/mm3 K/mm3 (0.0-0.012) Nucleated RBC % 0.0 % % (0.0-0.2) Sodium Potassium Chloride Carbon Dioxide Anion Gap BUN Creatinine Estim Creat Clear Calc Estimated GFR Glucose Calcium Total Bilirubin AST ALT Alkaline Phosphatase Total Protein Albumin Urine Color Yellow (Yellow) Urine Appearance Clear (Clear) Urine pH 5.5 (5.0-9.0) Ur Specific [place] <= 1.005 (1.001-1.035) Urine Protein Negative mg/dL mg/dL (Negative) Urine Glucose (UA) Negative mg/dL mg/dL (Negative) Urine Ketones Negative mg/dL mg/dL (Negative) Ur Blood (Man) Negative (Negative) Urine Nitrate Negative (Negative) Urine Bilirubin Negative (Negative) Urine Urobilinogen 0.2 mg/dL mg/dL (<2.0) Leukocyte Esterase Rfl Negative MARIA G/UL MARIA G/UL (Negative) 12/20/21 12/20/21 12/20/21 05:45 05:46 09:57 WBC RBC Hgb 7.1 g/dL L g/dL 7.0 g/dL L g/dL (12.0-15.0) (12.0-15.0) Hct 23.2 % L % 22.0 % L % (37.0-47.0) (37.0-47.0) MCV MCH
[2021-12-20 17:55] LABS: Hematocrit 24.8 % (37.0-47.0); Hemoglobin 7.7 g/dL (12.0-15.0)
[2021-12-20] MEDS: CALCIUM CARBONATE (OSCAL) 500 MG TABLET PO (18:12)
[2021-12-20] MEDS: ESCITALOPRAM OXALATE 10 MG TABLET PO (18:12)
[2021-12-21 03:41] VITALS: BP 98/55; PULSE 78; RESP 16; TEMP 36.8; O2SAT 100
[2021-12-21] MEDS: SODIUM CHLORIDE 0.9% IV 1,000 ML 100 ML IV CONT (05:24)
[2021-12-21 06:46] LABS: Basophils Absolute Auto 0.1 K/mm3 (0.0-0.1); Basophils Percent Auto 0.8 % (0.2-1.2); Eosinophils Absolute Auto 0.2 K/mm3 (0-0.3); Eosinophils Percent Auto 3.6 % (0-4.4); Hemoglobin 7.2 g/dL (12.0-15.0); Immature Granulocyte Absolute 0.02 K/mm3 (0.00-0.031); Immature Granulocyte Percent A 0.3 % (0-0.5); Lymphocytes Absolute Auto 2.11 K/mm3 (0.9-3.2); Lymphocytes Percent Auto 33.1 % (18.3-44.2); Mean Corpuscular HGB Conc 31.3 g/dl (32-36); Mean Corpuscular Hemoglobin 30.5 pg (26-34); Mean Corpuscular Volume 97.5 fl (80-100); Mean Platelet Volume 9.9 fl (7.4-10.4); Monocytes Absolute Auto 0.6 K/mm3 (0.1-0.6); Monocytes Percent Auto 9.6 % (2.6-8.5); Neutrophils Absolute Auto 3.4 K/mm3 (1.3-6.7); Neutrophils Percent Auto 52.6 % (45.5-73.1); Platelet Count Result 242 k/mm3 (150-375); Red Blood Count 2.36 M/mm3 (4.2-5.4); Red Cell Distribution Width 13.9 % (11.5-14.5); White Blood Count 6.4 K/mm3 (4.5-10.0)
--- NOTE | 2021-12-21 07:30 | P.DS_ITS ---
DS: Admitting Diagnosis Discharge Date 12/21/21729 Admitting Diagnosis GI Bleed, acute blood loss anemia, diverticulosis DS: Discharge Diagnosis Discharge Diagnosis (1) Acute upper gastrointestinal bleeding: Code(s): K92.2 - Gastrointestinal hemorrhage, unspecified Status: Acute Assessment and Plan: * Hemoccult positive in ER * history for upper GI bleeds D/T NSAID use, which she recently re-started. * trend hemoglobin and hematocrits * transfuse patient if her hemoglobin goes less than 7 * GI has been consulted * EGD showed no obvious upper GI source for bleeding. * Colonoscopy performed found diverticulosis * clear liquid diet * Hemoglobin 7.0/22.0 * Continue IV Protonix (2) Paroxysmal SVT (supraventricular tachycardia): Code(s): I47.1 - Supraventricular tachycardia Status: Acute Assessment and Plan: * Episode of supraventricular tachycardia that occurred when she was trying to vomit * 6 mg of IV adenosine and subsequently converted into normal sinus rhythm * monitor telemetry * Pt stable today without any reoccurrence of SVT or syncopal episodes. (3) Vasovagal syncope: Code(s): R55 - Syncope and collapse Status: Acute Assessment and Plan: * Syncopal episode reported by the patient after BM * ECG showed SVT (Patient did convert with adenosine in the ER) * Head CT showed no acute intracranial abnormality * BP's have been stable * No recurrent episode reported at this time (4) Leukocytosis: Code(s): D72.829 - Elevated white blood cell count, unspecified Status: Acute Assessment and Plan: * WBC 18 upon admission * Improved today at 8.3 * Remains afebrile without obvious source of infection * UA does not appear to be infectious * Of note, patient does report recent steroid taper x 2 weeks ago secondary to URI * Trending down (5) Diverticulosis: Code(s): K57.90 - Diverticulosis of intestine, part unspecified, without perforation or abscess without bleeding Status: Acute Assessment and Plan: * Found on the colonoscopy * GI consulted * Currently on clear liquids (6) Anxiety: Code(s): F41.9 - Anxiety disorder, unspecified Status: Chronic Assessment and Plan: * continue home alprazolam and lexapro DS: Summary Hospital Course Hospital Course: Patient is 58-year-old female with a past medical history of anemia, peptic ulcer disease, anxiety who presented to the ED with melena and syncope. Patient stated that she was in the bathroom and she was trying to have a bowel movement and she had a syncopal episode where she passed out an occult floor. Patient stated that she had approximately 10 episodes of black tarry stools. H&H upon arrival has been trending down. GI has been consulted and patient was taken for an EGD and a colonoscopy. EGD found to be normal and colonoscopy does find diverticulosis. Diet has been slowly advanced. H&H is currently is 7.2/23.0. Patient is tolerating a diet. Vital signs are stable. Upon arrival patient was noted to have white blood cell count of 18 which is down to 6.4 today. Anemia labs were drawn showed that low iron, iron supplement added, with a laxative. Patient appears stable at this time. Patient has agreed to labs in 1 week prior to her trip. Patient also had 1 episode of SVT were she was given adenosine and has had no further issues. Patient has be
--- NOTE | 2021-12-21 07:30 | PM.DS ---
DS: Admitting Diagnosis Discharge Date 12/21/21729 Admitting Diagnosis GI Bleed, acute blood loss anemia, diverticulosis DS: Discharge Diagnosis Discharge Diagnosis (1) Acute upper gastrointestinal bleeding: Code(s): K92.2 - Gastrointestinal hemorrhage, unspecified Status: Acute Assessment and Plan: Hemoccult positive in ER history for upper GI bleeds D/T NSAID use, which she recently re-started. trend hemoglobin and hematocrits transfuse patient if her hemoglobin goes less than 7 GI has been consulted EGD showed no obvious upper GI source for bleeding. Colonoscopy performed found diverticulosis clear liquid diet Hemoglobin 7.0/22.0 Continue IV Protonix (2) Paroxysmal SVT (supraventricular tachycardia): Code(s): I47.1 - Supraventricular tachycardia Status: Acute Assessment and Plan: Episode of supraventricular tachycardia that occurred when she was trying to vomit 6 mg of IV adenosine and subsequently converted into normal sinus rhythm monitor telemetry Pt stable today without any reoccurrence of SVT or syncopal episodes. (3) Vasovagal syncope: Code(s): R55 - Syncope and collapse Status: Acute Assessment and Plan: Syncopal episode reported by the patient after BM ECG showed SVT (Patient did convert with adenosine in the ER) Head CT showed no acute intracranial abnormality BP's have been stable No recurrent episode reported at this time (4) Leukocytosis: Code(s): D72.829 - Elevated white blood cell count, unspecified Status: Acute Assessment and Plan: WBC 18 upon admission Improved today at 8.3 Remains afebrile without obvious source of infection UA does not appear to be infectious Of note, patient does report recent steroid taper x 2 weeks ago secondary to URI Trending down (5) Diverticulosis: Code(s): K57.90 - Diverticulosis of intestine, part unspecified, without perforation or abscess without bleeding Status: Acute Assessment and Plan: Found on the colonoscopy GI consulted Currently on clear liquids (6) Anxiety: Code(s): F41.9 - Anxiety disorder, unspecified Status: Chronic Assessment and Plan: continue home alprazolam and lexapro DS: Summary Hospital Course Hospital Course: Patient is 58-year-old female with a past medical history of anemia, peptic ulcer disease, anxiety who presented to the ED with melena and syncope. Patient stated that she was in the bathroom and she was trying to have a bowel movement and she had a syncopal episode where she passed out an occult floor. Patient stated that she had approximately 10 episodes of black tarry stools. H&H upon arrival has been trending down. GI has been consulted and patient was taken for an EGD and a colonoscopy. EGD found to be normal and colonoscopy does find diverticulosis. Diet has been slowly advanced. H&H is currently is 7.2/23.0. Patient is tolerating a diet. Vital signs are stable. Upon arrival patient was noted to have white blood cell count of 18 which is down to 6.4 today. Anemia labs were drawn showed that low iron, iron supplement added, with a laxative. Patient appears stable at this time. Patient has agreed to labs in 1 week prior to her trip. Patient also had 1 episode of SVT were she was given adenosine and has had no further issues. Patient has been educated about the signs and symptoms of further bleeding. Patient really denies for any bleeding at this time. She also denies any chest pain, shortness of breath, dizziness, weakness or fatigue. Status at Discharge Functional status at discharge: independent ambulation Overall status at discharge: patient is progressing back to baseline Time Spent with Patient Time attestation: Total time spent providing and/or coordinating discharge services: 36 minutes Time spent:
[2021-12-21 07:34] LABS: Alanine Aminotransferase 18 U/L (6-35); Albumin Level 2.7 g/dL (3.5-5.1); Alkaline Phosphatase 63 U/L (38-126); Anion Gap 0 mmol/L (8-16); Aspartate Amino Transferase 21 U/L (14-36); Bilirubin,Total 0.3 mg/dL (0.2-1.3); Blood Urea Nitrogen 8 mg/dL (7-17); Calcium 7.9 mg/dL (8.4-10.2); Carbon Dioxide 29 mmol/L (22-30); Chloride 107 mmol/L (98-107); Estimated CRCL calculation 74 ml/min; Estimated Glomerular Filt Rate > 60; Glucose 99 mg/dL (65-110); Magnesium 1.9 mg/dL (1.6-2.3); Potassium 3.4 mmol/L (3.4-5.0); Sodium 136 mmol/L (137-145)
[2021-12-21] MEDS: CALCIUM CARBONATE (OSCAL) 500 MG TABLET PO (08:51)
[2021-12-21] MEDS: PANTOPRAZOLE 40 MG TABLET PO (08:51)
[2021-12-21 08:54] LABS: Iron 34 ug/dL (37-170)
[2021-12-21 09:09] LABS: Transferrin 182 mg/dL (206-381)
[2021-12-21 09:17] LABS: Percent Iron Saturation 11 % (20-50)
[2021-12-21 09:57] LABS: Folic Acid 15.9 ng/mL (2.76->20)
[2021-12-21] MEDS: ESCITALOPRAM OXALATE 10 MG TABLET PO (10:13)
[2021-12-21] MEDS: SENNA/DOCUSATE SODIUM TABLET 1 TAB PO (10:14)
--- NOTE | 2021-12-21 11:39 | WPDGIPROGNO ---
Progress Note: A&P Assessment and Plan (1) Diverticulosis: Code(s): K57.90 - Diverticulosis of intestine, part unspecified, without perforation or abscess without bleeding Status: Acute Assessment and Plan: Diverticulosis appears to be etiology for recent GI bleeding. This is now stopped. Diverticular disease identified by endoscopy most likely source of bleeding. small-bowel series completed and additional jejunal diverticular disease noted. Typically when this stops at all remains. . Would recommend advancing diet as tolerated. High-fiber iron diet is ad advised. Monitor hemoglobin after discharge. Given her prior history of colon polyps consider colonoscopy in 5 years. (2) H/O colonoscopy with polypectomy: Code(s): Z98.890 - Other specified postprocedural states; Z86.010 - Personal history of colonic polyps Status: Acute Assessment and Plan: Patient with a history of colon polyps. Continued follow-up 5 year interval suggested. Discharge today suggested. Subjective Date/time seen: 12/21/21 11:39 patient alert comfortable this morning. Past no additional stool. Denies abdominal pain. Tolerating diet so far. Review of Systems Review of Systems: Review of systems noncontributory. Exam Narrative: Physical exam reveals patient to be alert. Vital signs stable. HEENT exam is unremarkable. Patient is anicteric. Lungs are clear to auscultation and percussion. Heart is without murmur or extra sounds. Abdomen bowel sounds present soft nontender with no organomegaly. Objective Data Vital Signs Vital Signs: Vital Signs - 24 hr 12/20/21 13:19 12/20/21 14:14 12/20/21 14:24 Temperature 97.9 F Pulse Rate 78 80 77 Respiratory Rate 18 21 H 25 H Blood Pressure 111/52 L 113/88 109/60 Pulse Oximetry 99 94 100 Oxygen Delivery Room Air Room Air Room Air 12/20/21 14:34 12/20/21 17:10 12/20/21 20:00 Temperature 97.2 F L Pulse Rate 80 87 Respiratory Rate 26 H 18 Blood Pressure 108/69 120/84 Pulse Oximetry 100 99 Oxygen Delivery Room Air Room Air 12/20/21 21:39 12/20/21 22:05 12/21/21 03:41 Temperature 97.0 F L 98.2 F Pulse Rate 82 78 Respiratory Rate 18 16 Blood Pressure 128/71 98/55 L Pulse Oximetry 97 96 100 Oxygen Delivery Room Air 12/21/21 08:50 Temperature Pulse Rate Respiratory Rate Blood Pressure Pulse Oximetry Oxygen Delivery Room Air Intake/Output Intake/Output: Intake & Output 12/18/21 12/19/21 12/20/21 12/21/21 23:59 23:59 23:59 23:59 Intake Total 3700 3200 790 Output Total 1150 600 Balance 2550 2600 790 Meds/Results Medications: Active Medications Generic Name Dose Route Start Last Admin Trade Name Freq PRN Reason Stop Dose Admin Calcium Carbonate 500 mg 12/19/21 17:00 12/21/21 08:51 Calcium Carbonate (Oscal) 500 Mg Tablet PO 500 mg BIDWM [facility] Administration Escitalopram Oxalate 10 mg 12/20/21 09:00 12/21/21 10:13 Escitalopram Oxalate 10 Mg Tablet PO 10 mg DAILY AMAIRANI Administration Ferrous Sulfate 324 mg 12/21/21 17:00 Ferrous Sulfate 324 Mg Tablet PO BIDWM [facility] Ondansetron HCl 4 mg 12/18/21 17:37 Ondansetron Inj 4 Mg/2 Ml Vial IV PUSH Q4H PRN Nausea Pantoprazole Sodium 40 mg 12/21/21 09:00 12/21/21 08:51 Pantoprazole 40 Mg Tablet PO 40 mg QAM [facility] Administration Senna/Docusate Sodium 1 tab 12/21/21 09:00 12/21/21 10:14 Senna/Docusate Sodium Tablet PO 1 tab DAILY AMAIRANI Administration Radiology Results: ITS Impressions Head CT 12/18/21 16:49 IMPRESSION: 1. No acute intracranial abnormality. 2: Chronic age-related findings. Upper GI and Small Bowel X-Ray 12/20/21 21:11 IMPRESSION: 1. Jejunal diverticulosis. Labs Labs: Laboratory Results - last 24 hr 12/20/21 12/21/21 12/21/21 17:36 06:17 06:17 WBC 6.4 RBC 2.36 L Hgb 7.7 L 7.2 L Hct 24.8 L 23.0 L MCV 97.5 MCH 30.5 MCH
== END 2021-12-21 12:45 | disposition home or self-care (01) | DRG 378 ==
LOC: ANHED 17:37 → ANHIMU 18:32 → ANH3MEDSUR 12-19 23:17 → ANHIMU 12-22 11:04
PROVIDERS: Internal Medicine Gastroenterology; Nurse Practitioner Adult Health; Student in an Organized Health Care Education/Training Program; Admitting Provider Family Medicine; Emergency Provider Emergency Medicine; PCP Family Medicine Adolescent Medicine; Visit Provider Nurse Practitioner
PROC: 0DJ08ZZ Inspection of Upper Intestinal Tract, Via Natural or Artificial Opening Endoscopic (ICD-10-PCS; CPT 43235; principal; 2021-12-19 12:30)
PROC: 0DJD8ZZ Inspection of Lower Intestinal Tract, Via Natural or Artificial Opening Endoscopic (ICD-10-PCS; CPT 45378; principal; 2021-12-20 13:30)
DX: K57.31 Diverticulosis of large intestine without perforation or abscess with bleeding (principal); I47.1 Supraventricular tachycardia; K57.10 Diverticulosis of small intestine without perforation or abscess without bleeding; K64.8 Other hemorrhoids; D50.0 Iron deficiency anemia secondary to blood loss (chronic); R55 Syncope and collapse; D72.829 Elevated white blood cell count, unspecified; F41.9 Anxiety disorder, unspecified; Z79.899 Other long term (current) drug therapy; Z86.010 Personal history of colon polyps; Z87.11 Personal history of peptic ulcer disease; Z98.890 Other specified postprocedural states
CPT/HCPCS: 36415; 70450; 74250; 80053; 81003; 82607; 82728; 82746; 83540; 83550; 83605; 83735; 84466; 85014; 85018; 85025; 85610; 85730; 86850; 86900; 86901; 93005; 96361; 96365; 96366; 96375; 96376; 97161; 97165; 99285; A9270; C9113; G0378; J0153; J2001; J2405; J2704; J2765; J7030; J7060; J7120

== ENCOUNTER 2021-12-26 12:42 | Outpatient (CLI) | payer MEDICARE, SELFPAY ==
[2021-12-26 13:51] LABS: Hematocrit 25.1 % (37.0-47.0); Hemoglobin 7.6 g/dL (12.0-15.0); Mean Corpuscular HGB Conc 30.3 g/dl (32-36); Mean Corpuscular Hemoglobin 29.9 pg (26-34); Mean Corpuscular Volume 98.8 fl (80-100); Mean Platelet Volume 9.9 fl (7.4-10.4); Platelet Count Result 387 k/mm3 (150-375); Red Blood Count 2.54 M/mm3 (4.2-5.4); Red Cell Distribution Width 14.8 % (11.5-14.5)
== END 2021-12-26 12:43 | disposition home or self-care (01) ==
PROVIDERS: PCP Family Medicine Adolescent Medicine; Visit Provider Nurse Practitioner
DX: D72.829 Elevated white blood cell count, unspecified (principal); D64.9 Anemia, unspecified
CPT/HCPCS: 36415; 85027

== ENCOUNTER 2022-01-09 11:02 | Outpatient (CLI) | payer MEDICARE, SELFPAY ==
[2022-01-09 11:21] LABS: Hematocrit 32.7 % (37.0-47.0); Hemoglobin 10.1 g/dL (12.0-15.0)
== END 2022-01-09 11:03 | disposition home or self-care (01) ==
LOC: ANHLAB 11:05
PROVIDERS: PCP Family Medicine Adolescent Medicine; Visit Provider Family Medicine Adolescent Medicine
DX: D50.9 Iron deficiency anemia, unspecified (principal)
CPT/HCPCS: 36415; 85014; 85018

== ENCOUNTER 2022-03-09 07:40 | Outpatient (CLI) | payer MEDICARE, SELFPAY ==
--- NOTE | ~2022-03-09 | MM_ITS ---
EXAMINATION: MM screening jeff BI w asad HISTORY: Screening mammogram TECHNIQUE: Craniocaudal and mediolateral oblique 3-D tomosynthesis images were obtained and synthetic 2-D images were generated. CAD analysis was submitted and interpreted. COMPARISON: 09/2020 diagnostic bilateral mammogram and limited left breast ultrasound 03/10/2019 and 09/26/2018 diagnostic left mammogram and limited left breast ultrasound 09/26/2018, 06/21/2017 bilateral screening mammogram examinations BREAST PARENCHYMAL COMPOSITION: There are scattered areas of fibroglandular density. FINDINGS: There is no evidence of suspicious mass, calcification, or architectural distortion to sugg est malignancy in either breast. There has been no suspicious interval change. IMPRESSION: 1. No mammographic evidence of malignancy. 2. Recommend routine screening mammography in one year. BI-RADS Category 1: Negative Reviewed, dictated and finalized at location A.
== END 2022-03-09 07:41 | disposition home or self-care (01) ==
LOC: ANHIMG 07:42
PROVIDERS: PCP Family Medicine Adolescent Medicine; Visit Provider Nurse Practitioner
DX: Z12.31 Encounter for screening mammogram for malignant neoplasm of breast (principal)
CPT/HCPCS: 77063; 77067

== ENCOUNTER 2023-01-13 08:56 | Observation (INO) | payer MEDICARE, SELFPAY ==
[2023-01-13] VITALS (28 sets, daily range): BP systolic 118–150; BP diastolic 68–88; PULSE 69–98; RESP 9–23; TEMP 36.3–36.8; O2SAT 93–100; BMI 36.6
--- NOTE | ~2023-01-13 | XR_ITS ---
XR chest 2V DATE: 01/13/2023 09:26 INDICATION: Chest pain, shortness of breath TECHNIQUE: PA and lateral views COMPARISON: 06/17/2018 FINDINGS: Normal heart size. Aortic arch calcification. No hilar or mediastinal enlargement. No pulmo nary infiltrate or consolidation, pleural effusion or pulmonary vascular congestion or pneumothorax i s detected. IMPRESSION: No active cardiopulmonary disease Reviewed, dictated and finalized at location A.
--- NOTE | ~2023-01-13 | CT_ITS ---
EXAMINATION: CTA chest PE protocol DATE: 01/13/2023 12:12 INDICATION: Chest pain, elevated d-dimer TECHNIQUE: Computed tomography angiography (CTA) of the chest was performed with 100 mL Omnipaque-350 intravenous contrast timed to evaluate the pulmonary arteries. Coronal maximum intensity projection 3D-reconstructions were created by the technologist. Automated exposure control and iterative reconst ruction technique were employed. Exam dose: 670.29 mGy-cm total exam DLP. COMPARISON: 01/13/2023 PA and lateral chest FINDINGS: There is diagnostic contrast enhancement of the pulmonary arteries and no evidence of pulmo nary embolism. Normal heart size. No pericardial or pleural effusion. There is thoracic aortic calcification but no aneurysm or dissection. No hilar or mediastinal mass lesion or lymphadenopathy. The lungs are clear of infiltrate or consolidation. Left lower lobe basilar calcified pulmonary granu dereck. Diverticulosis of the left and right colon. IMPRESSION: No evidence of pulmonary embolism Reviewed, dictated and finalized at Location A. Reviewed, dictated and finalized at location A.
--- NOTE | ~2023-01-13 | NM_ITS ---
EXAMINATION: NM stress w perf spect multi DATE: 01/14/2023 12:48 INDICATION: Chest pain TECHNIQUE: Rest images were obtained following intravenous administration of 8.6 mCi Tc99m tetrofosmi n ([employer]). The patient performed an exercise activity. At peak exercise, 28.5 mCi Tc99m tetrofosmin ([employer]) was administered intravenously, and stress images were obtained. Data was reconstructed in to short axis and horizontal and vertical long axis SPECT images. Gated SPECT images were also obtain ed. COMPARISON: None. FINDINGS: There is normal left ventricular perfusion without definite evidence of reversible or fixed perfusion abnormality to suggest ischemia or infarction. There is normal left ventricular chamber size, wall motion and ejection fraction. Left ventricular ejection fraction measures >70%. IMPRESSION: 1. Normal myocardial perfusion at rest and during stress. 2. Left ventricular ejection fraction measuring >70%. Reviewed, dictated and finalized at location A.
--- NOTE | 2023-01-13 08:57 | ECG_ITS ---
Measurements Intervals [place] Rate: 78 P: 30 NV: 151 QRS: 13 QRSD: 89 T: -3 QT: 367 QTc: 419 Interpretive Statements SINUS RHYTHM NONSPECIFIC T-WAVE ABNORMALITY ABNORMAL ECG COMPARED TO ECG 12/18/2021 17:19:42 SINUS RHYTHM NOW PRESENT Electronically Signed On 01-14-2023 10:31:24 CDT by Robert Adams M.D.
[2023-01-13 09:26] LABS: Basophils Absolute Auto 0.1 K/mm3 (0.0-0.1); Basophils Percent Auto 0.9 % (0.2-1.2); Eosinophils Absolute Auto 0.2 K/mm3 (0-0.3); Eosinophils Percent Auto 2.4 % (0-4.4); Hematocrit 43.6 % (37.0-47.0); Hemoglobin 13.5 g/dL (12.0-15.0); Immature Granulocyte Absolute 0.03 K/mm3 (0.00-0.031); Immature Granulocyte Percent A 0.4 % (0-0.5); Lymphocytes Absolute Auto 2.14 K/mm3 (0.9-3.2); Lymphocytes Percent Auto 26.7 % (18.3-44.2); Mean Corpuscular Hemoglobin 27.7 pg (26-34); Mean Corpuscular Volume 89.5 fl (80-100); Mean Platelet Volume 9.9 fl (7.4-10.4); Monocytes Absolute Auto 0.8 K/mm3 (0.1-0.6); Monocytes Percent Auto 9.7 % (2.6-8.5); Neutrophils Absolute Auto 4.8 K/mm3 (1.3-6.7); Neutrophils Percent Auto 59.9 % (45.5-73.1); Platelet Count Result 373 k/mm3 (150-375); Red Blood Count 4.87 M/mm3 (4.2-5.4); Red Cell Distribution Width 16.5 % (11.5-14.5)
[2023-01-13 09:37] LABS: Alanine Aminotransferase 23 U/L (6-35); Alkaline Phosphatase 97 U/L (38-126); Anion Gap 6 mmol/L (8-16); Aspartate Amino Transferase 25 U/L (14-36); Bilirubin,Total 0.4 mg/dL (0.2-1.3); Blood Urea Nitrogen 17 mg/dL (7-17); Calcium 9.1 mg/dL (8.4-10.2); Carbon Dioxide 30 mmol/L (22-30); Chloride 103 mmol/L (98-107); Estimated CRCL calculation 73 ml/min; Estimated Glomerular Filt Rate > 60; Glucose 99 mg/dL (65-110); Lipase 46 U/L (23-300); Potassium 3.8 mmol/L (3.4-5.0); Sodium 139 mmol/L (137-145)
[2023-01-13 09:41] LABS: INR 0.9; Partial Thromboplastin Time 23.5 SECONDS (22.3-36.8); Prothrombin Time 12.9 Seconds (11.1-14.7)
--- NOTE | 2023-01-13 09:48 | ED.CHESTPAIN ---
HPI - Chest Pain General Chief Complaint: Chest Pain <Vijaya Bergman, [employer]ER - Last Filed: 01/13/23 13:16> Stated Complaint: chest pain <Vijaya Bergman [employer] - Last Filed: 01/13/23 13:16> Time Seen by Provider: 01/13/23 09:02 <Vijaya Bergman, [employer]ER - Last Filed: 01/13/23 13:16> History of Present Illness HPI narrative: 67-year-old female presents to the emergency room today with complaints of left-sided chest discomfort. She says it is a feeling of heaviness and it somewhat radiates into the left shoulder. She says it started around 730 this morning when she was lifting up some soda to put in her cart at [facility]. It is not as intense now as it was when it first started but it is still present. She denies any dizziness or lightheadedness. No nausea or sweats. No shortness of breath. No swelling in her hands or feet. She has had 2 other episodes similar to this in the past month. She was seen by her primary care provider for previous episode and they did get her scheduled for stress test which will be on January 24. <Vijaya Bergman, [employer] - Last Filed: 01/13/23 13:16> Related Data Home Medications: Home Medications Medication Instructions Recorded Confirmed cholecalciferol (vitamin D3) 100 100 mcg PO DAILY 11/01/20 01/13/23 mcg (4,000 unit) capsule <Vijaya Bergman, [employer]ER - Last Filed: 01/13/23 13:16> Allergies/Adverse Reactions: Allergies Allergy/AdvReac Type Severity Reaction Status Date / Time No Known Allergies Allergy Verified 01/13/23 10:52 <Vijaya Bergman, [employer]ER - Last Filed: 01/13/23 13:16> Review of Systems Review of Systems: CONSTITUTIONAL: Denies fever, chills, or sweats. EYES: Denies visual changes, redness, or discharge. ENT: Denies rhinorrhea, congestion, sore throat, or otalgia. CARDIOVASCULAR: as per HPI RESPIRATORY: Denies cough or dyspnea. GASTROINTESTINAL: Denies abdominal pain, nausea, vomiting, or diarrhea. GENITOURINARY: Denies dysuria or hematuria. SKIN: Denies rash or itching. MUSCULOSKELETAL: Denies back pain, joint pain, or myalgia. NEUROLOGIC: Denies headache, numbness, dizziness, or weakness. PSYCHIATRIC: Denies anxiety or depression. <Vijaya Bergman APRN - Last Filed: 01/13/23 13:16> [facility] Past Medical History Medical History: Medical History Acute blood loss anemia 02/08 Acute upper gastrointestinal bleeding (11/2021) Anxiety Diverticulosis Gastric peptic ulcer 02/08 History of colon polyps Large hiatal hernia <Vijaya Bergman [employer]ER - Last Filed: 01/13/23 13:16> Surgical History Surgical History: Surgical History (Updated 01/13/23 @ 13:35 by Yessy Banks NP) H/O colonoscopy with polypectomy 02/06 Repeat 02/11 H/O hernia repair History of fundoplication 06/27 Repair paraesophageal hernia History of repair of hiatal hernia History of ventral hernia repair (09/2021) <Vijaya Bergman [employer]ER - Last Filed: 01/13/23 13:16> Family History Family History: Family History Mother Cerebrovascular accident Family history of cardiovascular disease Depression Heart disease Hypertension Father Family history of cardiovascular disease Carcinoma of colon Colon polyp Diabetes mellitus Heart disease Sibling Carcinoma of colon Depression <Vijaya Bergman LE[employer]ENDER - Last Filed: 01/13/23 13:16> Social History Social History: Social History Social History: The patient is a lifelong nonsmoker. The patient is . The patient is a full code. The patient has 3 children. 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 barney carlos full code Smoking status: Never smoker Second hand tobacco smoke exposure: No Alcohol intake: never Substance use: n
[2023-01-13 09:49] LABS: Troponin I < 0.012 ng/mL (0.000-0.034)
[2023-01-13 10:48] LABS: Lipase 48 U/L (23-300); Magnesium 2.2 mg/dL (1.6-2.3)
[2023-01-13 10:55] LABS: D Dimer 0.73 ug/mL (<0.48)
[2023-01-13 13:00] LABS: Troponin I < 0.012 ng/mL (0.000-0.034)
--- NOTE | 2023-01-13 13:30 | PM.IMHP ---
H&P: HPI History of Present Illness Date/Time: 01/13/23 13:30 Chief Complaint: Chest pain Narrative: This is a 67-year-old female patient came to the emergency room with complaints of left-sided chest discomfort. The patient stated that she does not have a history of having any coronary artery disease or any stents. She has not had history of a cardiac catheterization. Patient stated this is the 3rd episode of chest pain. Patient stated that her chest pain is with activity and is the left upper chest. It is not reproducible. Radiates up to her left neck but does not radiate down her left arm. The patient stated when she rest the pain is resolved. She denies any dizziness or lightheadedness. She has no swelling in her hands or feet. She had 2 other episodes similar to this in the past month. The patient is scheduled for stress test but is not until January 24. The patient is scheduled to see Dr. Menendez. Troponins are negative x2 so far. Chest CTA shows no evidence of pulmonary embolism. Chest x-ray no acute cardiopulmonary disease. The patient stated that she does take an aspirin and took an aspirin prior to arrival and she was given another aspirin when she got here. EKG was read as sinus rhythm. D-dimer 0.73. The patient is being admitted to observation status on the date of service of 01/13/2023. Review of Systems Review of Systems: All systems reviewed & are unremarkable except as noted in HPI and below Constitutional: Constitutional: Reports as per HPI and Reports no additional constitutional complaints Eyes: Eyes: Reports as per HPI and Reports no additional eye complaints ENT: Reports system reviewed and no additional complaints, except as documented and Reports Normal hearing present Cardiovascular: Cardiovascular: Reports no additional cardiovascular complaints Respiratory: Respiratory: Reports no additional respiratory complaints and Reports no additional respiratory complaints Gastrointestinal: Gastrointestinal: Reports as per HPI and Reports no additional gastrointestinal complaints Musculoskeletal: Musculoskeletal: Reports no additional musculoskeletal complaints Integumentary/Breasts: Skin/Breast: Reports system reviewed and no additional complaints, except as docu and Reports as per HPI Neurologic: Reports system reviewed and no additional complaints, except as documented, Reports as per HPI and Reports Normal hearing present Psychiatric: Psychiatric: Reports no additional psychiatric complaints and Reports as per HPI Endocrine: Endocrine: Reports no additional endocrine complaints Hematologic/Lymphatic: Hematologic/Lymphatic: Reports no additional hematologic/lymphatic complaints Allergic/Immunologic: Allergic/Immunologic: Reports no additional allergic/immunologic complaints [facility] Past Medical History Medical History Acute blood loss anemia 02/08 Acute upper gastrointestinal bleeding (11/2021) Anxiety Diverticulosis Gastric peptic ulcer 02/08 History of colon polyps Large hiatal hernia Surgical History Surgical History (Updated 01/13/23 @ 13:35 by Yessy Banks NP) H/O colonoscopy with polypectomy 02/06 Repeat 02/11 H/O hernia repair History of fundoplication 06/27 Repair paraesophageal hernia History of repair of hiatal hernia History of ventral hernia repair (09/2021) Family History Family History Mother Cerebrovascular accident Family history of cardiovascular disease Depression Heart disease Hypertension Father Family history of cardiovascular disease Carcinoma of colon Colon polyp Diabetes mellitus Heart disease Sibling Carcinoma of colon Depression Social History Social History Social History: The patient is a lifelong nonsmoker. The patient is . The patient is a full code. The pat
--- NOTE | 2023-01-13 15:35 | ADMGEN ---
This patient, Deena Damon, was admitted to IMU Room 213-01. Patient/family oriented to hospital policies and general routines including ID bracelet, bed and alarms, visiting hours, pain management, procedures, bathroom and other care routines, personal items, smoking policy, room service/diet, and visiting hours. Information on how to activate the Rapid Response Team has been discussed. Patient/Family are encouraged to report perceived risks to care and to ask questions if they do not understand what they are told or what they should do.
[2023-01-13 16:22] LABS: Troponin I < 0.012 ng/mL (0.000-0.034)
[2023-01-14] VITALS (8 sets, daily range): BP systolic 110–149; BP diastolic 65–74; PULSE 69–89; RESP 16; TEMP 36.1–36.3; O2SAT 94–99
--- NOTE | 2023-01-14 | EST_ITS ---
Patient Info Name: Deena Damon Age: 67 years : 1955 Gender: Female Ht: 64 in Wt: 211 lbs BSA: 2.12 m2 HR: 78 bpm BP: 136 / 82 mmHg Heart Rhythm: Sinus Rhythm Exam Date: 01/14/2023 11:47 AM Exam Location: [facility] Stress Patient Status: Inpatient Admit Date: 01/13/2023 Staff Ordering Physician: Yessy Banks NP Attending Provider: Mariah Nixon MD Exercise Technologist: Janae Ching CT Nurse: CALEB CUENCA Exam Type: CA stress test treadmill w NM Study Info Indications R07.89 - Other chest pain A nuclear stress test was performed. A regadenoson stress test was performed. Summary 1. Normal sinus rhythm, normal electrocardiogram. 2. No diagnostic ST segment changes following treadmill exercise. Protocol: Alexis Stress ECG Details Stage: REST Duration (min): 1 min : 32 sec Speed (mph): 0.0 Grade (%): 0 HR (bpm): 79 SBP (mmHg): 136 DBP (mmHg): 82 METS: --- Stage: REST Duration (min): 6 min : 4 sec Speed (mph): 0.0 Grade (%): 0 HR (bpm): 84 SBP (mmHg): 136 DBP (mmHg): 82 METS: --- Stage: STAGE 1 Duration (min): 1 min : 0 sec Speed (mph): 1.7 Grade (%): 10 HR (bpm): 108 SBP (mmHg): 136 DBP (mmHg): 82 METS: --- Stage: STAGE 1 Duration (min): 2 min : 0 sec Speed (mph): 1.7 Grade (%): 10 HR (bpm): 125 SBP (mmHg): 136 DBP (mmHg): 82 METS: --- Stage: STAGE 1 Duration (min): 3 min : 0 sec Speed (mph): 1.7 Grade (%): 10 HR (bpm): 137 SBP (mmHg): 184 DBP (mmHg): 99 METS: --- Stage: STAGE 2 Duration (min): 0 min : 8 sec Speed (mph): 2.5 Grade (%): 12 HR (bpm): 139 SBP (mmHg): 184 DBP (mmHg): 99 METS: --- Stage: RECOVERY Duration (min): 0 min : 51 sec Speed (mph): 0.0 Grade (%): 0 HR (bpm): 115 SBP (mmHg): 184 DBP (mmHg): 99 METS: --- Stage: RECOVERY Duration (min): 1 min : 51 sec Speed (mph): 0.0 Grade (%): 0 HR (bpm): 94 SBP (mmHg): 184 DBP (mmHg): 99 METS: --- Stage: RECOVERY Duration (min): 2 min : 51 sec Speed (mph): 0.0 Grade (%): 0 HR (bpm): 98 SBP (mmHg): 144 DBP (mmHg): 87 METS: --- Stage: RECOVERY Duration (min): 3 min : 4 sec Speed (mph): 0.0 Grade (%): 0 HR (bpm): 98 SBP (mmHg): 144 DBP (mmHg): 87 METS: --- Rest HR: 84 bpm Peak HR: 142 bpm Rest Sys BP: 136 mmHg Peak Sys BP: 184 mmHg Max Pred HR: 151 bpm % Max Pred HR: 94 % Target HR: 128 bpm Max RPP: 26,128 bpm*mmHg Suarez Score: -2 Target HR Summary: Patient's target heart rate was achieved BP Response: Normal blood pressure response Termination Reason: Shortness of breath Cardiac Symptoms: Shortness of breath Max ST Seg Deviation: 1 mm Total Time: 3 min : 8 sec Rest Cavazos BP: 82 mmHg Peak Cavazos BP: 99 mmHg Angina Score: None Total METS: 4.7 Resting ECG Normal sinus rhythm, normal electrocardiogram. Stress ECG No diagnostic ST segment changes following treadmill exercise. Report Signatures 14:
--- NOTE | 2023-01-14 | ECHO_ITS ---
Patient Info Name: Deena Damon Age: 67 years : 1955 Gender: Female Ht: 64 in Wt: 211 lbs BSA: 2.12 m2 HR: 69 bpm BP: 110 / 65 mmHg Heart Rhythm: Sinus Rhythm Technical Quality: Fair Exam Date: 01/14/2023 8:35 AM Exam Location: [facility] Card Pulmonary Patient Status: Inpatient Admit Date: 01/13/2023 Staff Ordering Physician: Yessy Banks NP [employer]: Sarah Buckner RDCS Attending Provider: Mariah Nixon MD Referring Physician: Darren REDDING; Exam Type: CA echo doppler color flow Study Info Indications R07.9 - Chest pain, unspecified Complete two-dimensional, color flow and Doppler transthoracic echocardiogram is performed. Summary 1. Complete two-dimensional, color flow and Doppler transthoracic echocardiogram is performed. 2. Left ventricular chamber dimension is normal. 3. Left ventricular systolic function is normal, estimated at 65-70%. 4. There is mildly increased left ventricular wall thickness. 5. The left ventricular diastolic function is grade I diastolic dysfunction. 6. Left atrial chamber dimension is mildly enlarged. 7. There is mild mitral valve regurgitation. 8. There is mild tricuspid valve regurgitation. Left Ventricle Left ventricular chamber dimension is normal. Left ventricular systolic function is normal, estimated at 65-70%. There is mildly increased left ventricular wall thickness. The left ventricular diastolic function is grade I diastolic dysfunction. Right Ventricle Right ventricular chamber dimension is normal. Right ventricular systolic function is normal. Left Atria Left atrial chamber dimension is mildly enlarged. Right Atria Right atrial chamber dimension is normal. Atrial Septum Intact interatrial septum visualized by color flow imaging. Aortic Valve The aortic valve is trileaflet. There is mild aortic valve sclerosis. There is no aortic valve stenosis. There is trace aortic valve regurgitation. Pulmonic Valve The pulmonic valve is normal. There is no pulmonic valve stenosis. There is trace pulmonic regurgitation. Mitral Valve The mitral valve has normal leaflets. There is no mitral valve stenosis. There is mild mitral valve regurgitation. Tricuspid Valve The tricuspid valve leaflets are normal. There is no significant tricuspid valve stenosis. There is mild tricuspid valve regurgitation. No pulmonary hypertension, estimated pulmonary arterial systolic pressure is 31 mmHg. Pericardium/Pleural The pericardium appears normal. There is no pericardial effusion. Inferior Vena Cava Normal inferior vena cava with >50% collapse upon inspiration consistent with normal right atrial pressure, 10 mmHg. Aorta The aortic root size at the sinus of Valsalva is normal. The prox ascending aorta size is normal. Left Ventricular Outflow Tract Name Value Normal LVOT 2D LVOT Diameter 2.0 cm LVOT Doppler LVOT Peak Gradient 6 mmHg LVOT Mean Gradient 3 mmHg LVOT VTI 26 cm LVOT VTI/AV VTI Ratio 0.8 LVOT Stroke Volume 85 ml LVOT CO 5.6 l/min
[2023-01-14 04:38] LABS: Basophils Absolute Auto 0.1 K/mm3 (0.0-0.1); Basophils Percent Auto 0.8 % (0.2-1.2); Eosinophils Absolute Auto 0.2 K/mm3 (0-0.3); Eosinophils Percent Auto 2.2 % (0-4.4); Hematocrit 41.1 % (37.0-47.0); Hemoglobin 13.1 g/dL (12.0-15.0); Immature Granulocyte Absolute 0.02 K/mm3 (0.00-0.031); Immature Granulocyte Percent A 0.3 % (0-0.5); Lymphocytes Absolute Auto 2.19 K/mm3 (0.9-3.2); Lymphocytes Percent Auto 28.2 % (18.3-44.2); Mean Corpuscular HGB Conc 31.9 g/dl (32-36); Mean Corpuscular Hemoglobin 28.2 pg (26-34); Mean Corpuscular Volume 88.4 fl (80-100); Mean Platelet Volume 9.9 fl (7.4-10.4); Monocytes Absolute Auto 0.9 K/mm3 (0.1-0.6); Monocytes Percent Auto 11.5 % (2.6-8.5); Neutrophils Absolute Auto 4.4 K/mm3 (1.3-6.7); Platelet Count Result 327 k/mm3 (150-375); Red Blood Count 4.65 M/mm3 (4.2-5.4); Red Cell Distribution Width 16.4 % (11.5-14.5); White Blood Count 7.8 K/mm3 (4.5-10.0)
[2023-01-14 04:48] LABS: Alanine Aminotransferase 21 U/L (6-35); Albumin Level 3.8 g/dL (3.5-5.1); Alkaline Phosphatase 93 U/L (38-126); Anion Gap 3 mmol/L (8-16); Aspartate Amino Transferase 23 U/L (14-36); Bilirubin,Total 0.5 mg/dL (0.2-1.3); Blood Urea Nitrogen 15 mg/dL (7-17); Carbon Dioxide 28 mmol/L (22-30); Chloride 105 mmol/L (98-107); Estimated CRCL calculation 74 ml/min; Estimated Glomerular Filt Rate > 60; Glucose 98 mg/dL (65-110); Lipase 33 U/L (23-300); Magnesium 2.1 mg/dL (1.6-2.3); Potassium 3.8 mmol/L (3.4-5.0); Sodium 136 mmol/L (137-145)
--- NOTE | 2023-01-14 10:00 | PM.CNCAR ---
Assessment and Plan Assessment and plan (1) Chest pain: Qualifiers: Chest pain type: unspecified Qualified Code(s): R07.9 - Chest pain, unspecified Code(s): R07.9 - Chest pain, unspecified Status: Acute Assessment and Plan: This is a typical pain. The duration of lasting 4-5 hours without troponin release if cardiac is a bit unusual. Will order an exercise myocardial perfusion study for ischemic evaluation. Will check a fasting lipid panel. Aspirin 81 mg p.o. daily to be started least at this point. 2D echocardiogram with Doppler will also be ordered and reviewed. Further workup and recommendations depend on the above test results. (2) Anemia, iron deficiency: Code(s): D50.9 - Iron deficiency anemia, unspecified Status: Acute Assessment and Plan: She does have a history of peptic ulcer disease as well as diverticulosis. (3) Anxiety: Code(s): F41.9 - Anxiety disorder, unspecified Status: Chronic Assessment and Plan: Continue alprazolam p.r.n. History of Present Illness History of Present Illness Consult date/time: 01/14/23 10:00 Requesting physician: Yessy Sofia NP Consult reason: chest pain Reason For Visit: chest pain Narrative: Reason for consultation: Chest pain Date of service 01/14/2023 Requesting provider: Yessy sofia History: Patient is a 67-year-old female who has a recent history of chest pain. She is scheduled for stress test in January 24. Shows scheduled see Dr. Menendez. She has not had either performed at this point though. She has had 3 episodes of chest pain. The 1st episode occurred while pulling weeds. She had tightness which resolved after a few hours. She did have some associated shortness of breath and no radiation to her symptoms. This was about 4-6 weeks ago. Two weeks ago she had an episode while shopping at [employer] when she has some tightness. At that time she had some radiation to her neck. She went to her car and took an aspirin and is an ex and symptoms did subside after about 4 hours. Then yesterday showed an episode whenever she was at [employer] picking up some soda. She has some pain in her upper chest which radiated to her left shoulder. No associated symptoms. This episode lasted about 4-5 large before gradually resolving. She has no syncope, presyncope, paroxysmal nocturnal dyspnea, orthopnea, edema palpitations Review of Systems Review of Systems: All systems reviewed & are unremarkable except as noted in HPI and below Constitutional: Constitutional: Denies body ache(s) Eyes: Eyes: Denies blurry vision ENT: Reports Normal hearing present Cardiovascular: Cardiovascular: Reports chest pain Respiratory: Respiratory: Denies chest congestion and Denies cough Gastrointestinal: Gastrointestinal: Denies abdominal pain Genitourinary: Genitourinary: Denies hematuria Musculoskeletal: Musculoskeletal: Denies back pain Integumentary/Breasts: Skin/Breast: Denies rash Neurologic: Denies Abnormal speech present Psychiatric: Psychiatric: Denies behavioral changes Endocrine: Endocrine: Denies excessive sweating Hematologic/Lymphatic: Hematologic/Lymphatic: Denies easy bleeding Allergic/Immunologic: Allergic/Immunologic: Denies GI upset with certain foods PMFSH Past Medical History Medical History Acute blood loss anemia 02/08 Acute upper gastrointestinal bleeding (11/2021) Anxiety Diverticulosis Gastric peptic ulcer 02/08 History of colon polyps Large hiatal hernia Surgical History Surgical History H/O colonoscopy with polypectomy 02/06 Repeat 02/11 H/O hernia repair History of fundoplication 06/27 Repair paraesophageal hernia History of repair of hiatal hernia History of ventral hernia repair (09/2021) Family History Family History (Reviewed 01/14/23 @ 10:15 by Sherin
[2023-01-14 10:37] LABS: Cholesterol 187 mg/dL (0-200); HDL Direct 39 mg/dL; Triglycerides 140 mg/dL (<150)
[2023-01-14 10:48] LABS: LDL Cholesterol Direct 116 mg/dL
[2023-01-14] MEDS: ACETAMINOPHEN 325 MG TABLET 650 MG PO (13:07)
--- NOTE | 2023-01-14 14:43 | PM.DS ---
DS: Admitting Diagnosis Discharge Date 01/14/2023 Admitting Diagnosis Chest pain DS: Discharge Diagnosis Discharge Diagnosis (1) Chest pain in adult: Code(s): R07.9 - Chest pain, unspecified Status: Acute Assessment and Plan: Continue to trend cardiac enzymes. The negative x2 so far. An echo has been ordered. I did hear a murmur at the left sternal border which was mild. Stress test has been ordered for tomorrow. Cardiology has been consulted. The patient stated that she does have some anxiety and thinks that anxiety might be part of this as well. The patient was given aspirin today. However she has a history of having a GI bleed in the past. She had a GI bleed due to NSAIDs. Please evaluate the patient to see if she needs to continue with aspirin. (2) Anxiety: Code(s): F41.9 - Anxiety disorder, unspecified Status: Chronic Assessment and Plan: The patient stated that she was weaned off of her anxiety medication. DS: Summary Hospital Course Reason for hospitalization: Chest pain Narrative: This is a 67-year-old female patient came to the emergency room with complaints of left-sided chest discomfort.? The patient stated that she does not have a history of having any coronary artery disease or any stents.? She has not had history of a cardiac catheterization.? Patient stated this is the 3rd episode of chest pain.? Patient stated that her chest pain is with activity and is the left upper chest.? It is not reproducible.? Radiates up to her left neck but does not radiate down her left arm.? The patient stated when she rest the pain is resolved.? She denies any dizziness or lightheadedness.? She has no swelling in her hands or feet.? She had 2 other episodes similar to this in the past month.? The patient is scheduled for stress test but is not until January 24.? The patient is scheduled to see Dr. Menendez.? Troponins are negative x2 so far.? Chest CTA shows no evidence of pulmonary embolism.? Chest x-ray no acute cardiopulmonary disease.? The patient stated that she does take an aspirin and took an aspirin prior to arrival and she was given another aspirin when she got here.? EKG was read as sinus rhythm.? D-dimer 0.73.? The patient is being admitted to observation status on the date of service of 01/13/2023. Hospital Course: 67-year-old female presented with complaint of chest pain, 3 sets of cardiac enzymes are negative, there are no acute changes on EKG, stress test did not show any ischemic event and cardiac echo showed preserved LV function with grade 1 diastolic dysfunction, patient is clinically stable will discharge the patient home today to follow-up with her primary care provider. Patient instructed if any symptoms redeveloped to go to nearest emergency department Time Spent with Patient Time attestation: Total time spent providing and/or coordinating discharge services: Exam Narrative: Patient is comfortable, NAD HEENT: eyes are clear and none icteric LUNGS:CTA HEART: RR S1S2 ABD: Distended Lower extremities: no edema SKIN: nonjaundiced Neuro: grossly intact. DS: Data Data Completed and Pending Labs on day of discharge: Labs from last 24 hours 01/14/23 01/14/23 01/13/23 04:20 04:18 15:47 WBC 7.8 RBC 4.65 Hgb 13.1 Hct 41.1 MCV 88.4 MCH 28.2 MCHC 31.9 L RDW 16.4 H Plt Count 327 MPV 9.9 Immature Gran % (Auto) 0.3 Neut % (Auto) 57.0 Lymph % (Auto) 28.2 [place] % (Auto) 11.5 H Eos % (Auto) 2.2 Baso % (Auto) 0.8 Lymph # (Auto) 2.19 [place] # (Auto) 0.9 H Eos # (Auto) 0.2 Baso # (Auto) 0.1 Abs Immat Gran (auto) 0.02 Absolute Neuts (auto) 4.4 Absolute Nucleated RBC 0.0 Nucleated RBC % 0.0 Sodium 136 L Potassium 3.8 Chloride 105 Carbon Dioxide 28 Anion Gap 3 L BUN 15 Creatinine 0.70 Estim Creat Clear Calc 74 Estimated GFR > 60 Glucose 98 Calcium 9.0 Magnesium
== END 2023-01-14 15:32 | disposition home or self-care (01) ==
LOC: ANHED 13:16 → ANHIMU 14:38
PROVIDERS: Internal Medicine Cardiovascular Disease; Nurse Practitioner; Preventive Medicine Aerospace Medicine; Admitting Provider Family Medicine; Emergency Provider Nurse Practitioner Family; PCP Family Medicine Adolescent Medicine; Visit Provider Family Medicine
DX: R07.9 Chest pain, unspecified (principal); D50.9 Iron deficiency anemia, unspecified; F41.9 Anxiety disorder, unspecified; R06.02 Shortness of breath; M25.512 Pain in left shoulder; K57.90 Diverticulosis of intestine, part unspecified, without perforation or abscess without bleeding; I08.1 Rheumatic disorders of both mitral and tricuspid valves; K44.9 Diaphragmatic hernia without obstruction or gangrene; R94.31 Abnormal electrocardiogram [ECG] [EKG]; R79.1 Abnormal coagulation profile; Z79.899 Other long term (current) drug therapy
CPT/HCPCS: 36415; 71046; 71275; 78452; 80053; 80061; 83690; 83735; 84443; 84484; 85025; 85380; 85610; 85730; 93005; 93017; 93306; 99285; A9270; A9502; G0378; Q9967

== ENCOUNTER → 2023-01-29 12:15 | Outpatient (CLI) | payer MEDICARE, SELFPAY ==
--- NOTE | ~2023-01-29 | DEXA_ITS ---
Bone Density Report Name: PETROS LOPEZ Age: 67 Sex: Female Ethnicity: White Date of : 1955 Indication: postmenopausal; screening for osteoporosis; Referring Provider: MARY SOTO Study: Bone densitometry was performed. Exam Date: January 29, 2023 Accession number: [id number] Bone Density: Region BMD T-score Z-score Classification AP Spine (L1, L3, L4) 1.075 0.2 2.3 Normal Femoral Neck (Left) 0.855 0.1 1.8 Normal Total Hip (Left) 1.106 1.3 2.8 Normal Femoral Neck (Right) 0.952 0.9 2.7 Normal Total Hip (Right) 1.112 1.4 2.9 Normal Total Hip Mean 1.109 1.4 2.9 Normal World Health Organization criteria for BMD impression classify patients as: Normal (T-score at or above -1.0), Osteopenia (T-score between -1.0 and -2.5), or Osteoporosis (T-score at or below -2.5). 10-year Fracture Risk: FRAX not reported because: All T-scores for Spine Total, Hip Total, Femoral Neck at or above -1.0 Previous Exams: Region Exam Age BMD T-score BMD Change BMD Change Date g/cm2 vs Baseline vs Previous AP Spine(L1, L3, L4) 01/29/2023 67 1.075 0.2 0.052 0.055* 02/12/2018 62 1.020 -0.3 -0.003 -0.003 10/21/2012 57 1.023 -0.3 Total Hip(Left) 01/29/2023 67 1.106 1.3 -0.046 -0.009 02/12/2018 62 1.116 1.4 -0.036 -0.036 10/21/2012 57 1.152 1.7 Total Hip(Right) 01/29/2023 67 1.112 1.4 -0.048 0.039* 02/12/2018 62 1.073 1.1 -0.086 -0.086 10/21/2012 57 1.160 1.8 *Denotes significance at 95% confidence level, LSC for AP Spine = 0.022 g/cm2, LSC for Total Hip = 0.027 g/cm2 Clinical Information Provided by Patient: Has used the following medications: Vitamin D Patient maximum height was 64 Menopause Age: 51 No regular weight bearing exercise Drinks caffeinated beverages Onset of menses at age 10 Number of children 3 Impression: The patient has normal bone mass. No significant bone loss was observed. Discussion: BONE DENSITY IS ABOVE THE MINIMUM DESIRABLE LEVEL AT ALL SKELETAL SITES TESTED. This patient?s bone mineral density is above the minimum desirable level (T-score -1.0 or better) at all sites measured. The patient should follow a healthful lifestyle (good nutrition with adequate calcium and vitamin D, and appropriate weight-bearing exercise). Follow-Up: Consider repeating this study in 5 years o
== END ==
PROVIDERS: PCP Obstetrics & Gynecology Gynecology; Visit Provider Family Medicine Adolescent Medicine
DX: Z78.0 Asymptomatic menopausal state (principal)
CPT/HCPCS: 77080

== ENCOUNTER 2023-02-13 14:21 | Outpatient (CLI) | payer MEDICARE, SELFPAY ==
--- NOTE | 2023-02-13 15:03 | PCRCNOTE ---
PATIENT WAS UNABLE TO PREFORM PULMONARY FUNCTION TEST. DR. SOTO NOTIFIED.
== END 2023-02-13 14:22 | disposition home or self-care (01) ==
LOC: ANHPFT 14:25
PROVIDERS: PCP Family Medicine Adolescent Medicine; Visit Provider Nurse Practitioner Family
DX: R05.3 Chronic cough (principal)
CPT/HCPCS: 99199

== ENCOUNTER 2023-04-11 15:54 | Outpatient (CLI) | payer MEDICARE, SELFPAY ==
--- NOTE | ~2023-04-11 | MM_ITS ---
EXAMINATION: MM screening [facility] BI w asad HISTORY: Screening TECHNIQUE: Craniocaudal and mediolateral oblique 3-D tomosynthesis images were obtained and synthetic 2-D images were generated. CAD analysis was submitted and interpreted. COMPARISON: Comparison to multiple prior studies sequentially, with oldest reviewed study dated 07/2016. BREAST PARENCHYMAL COMPOSITION: There are scattered areas of fibroglandular density. FINDINGS: There is no evidence of suspicious mass, calcification, or architectural distortion to sugg est malignancy in either breast. There has been no suspicious interval change. IMPRESSION: 1. No mammographic evidence of malignancy. 2. Recommend routine screening mammography in one year. BI-RADS Category 1: Negative Reviewed, dictated and finalized at location A.
== END 2023-04-11 15:55 | disposition home or self-care (01) ==
PROVIDERS: PCP Family Medicine Adolescent Medicine; Visit Provider Family Medicine Adolescent Medicine
DX: Z12.31 Encounter for screening mammogram for malignant neoplasm of breast (principal)
CPT/HCPCS: 77063; 77067

== ENCOUNTER 2023-11-29 14:00 | Outpatient (CLI) | payer MEDICARE, SELFPAY ==
--- NOTE | ~2023-11-29 | CT_ITS ---
EXAMINATION: CT abdomen wo con DATE: 11/29/2023 14:23 INDICATION: Upper abdominal pain. Left CVA tenderness. TECHNIQUE: Computed tomography (CT) of the abdomen and pelvis was performed without intravenous contr ast. Automated exposure control and iterative reconstruction technique were employed. The dose-length product was 855.15 mGy-cm. COMPARISON: None FINDINGS: A couple small calcified nodules along with a couple unchanged 4 mm noncalcified nodules at the later al basilar left lower lobe consistent with old granulomatous disease. Heart size normal. Atherosclero tic coronary artery calcifications. No pericardial or pleural effusion. Postoperative changes at the thoracic outlet likely related to prior Daniel fundoplication. Gallstones within the otherwise normal partially decompressed gallbladder. Liver, spleen, pancreas, bilateral adrenal glands and kidneys ar e normal. No intra or extrahepatic biliary ductal dilation. Postoperative change of interval umbilica l/supraumbilical ventral hernia repair. There is moderate scattered diverticulosis along the visualiz ed colon without adjacent from trace stranding to suggest diverticulitis. 5 cm gas-filled diverticulu m arising from the second portion of the duodenum. The appendix and remainder of the small bowel are normal. No pathologically enlarged abdominal or upper pelvic lymphadenopathy. Moderate to severe lowe r lumbar spondylosis. IMPRESSION: 1. No acute intra-abdominal process. 2. Cholelithiasis. 3. Postoperative change of prior Daniel fundoplication and umbilical/supraumbilical ventral hernia re pair. 4. Diverticulosis. Reviewed, dictated and finalized at location A. IMPRESSION: 1. No acute intra-abdominal process. 2. Cholelithiasis. 3. Postoperative change of prior Daniel fundoplication and umbilical/supraumbil ical ventral hernia repair. 4. Diverticulosis.
== END 2023-11-29 14:01 | disposition home or self-care (01) ==
LOC: ANHIMG 14:03
PROVIDERS: PCP Family Medicine Adolescent Medicine; Visit Provider Family Medicine Adolescent Medicine
DX: K80.20 Calculus of gallbladder without cholecystitis without obstruction (principal); K57.30 Diverticulosis of large intestine without perforation or abscess without bleeding
CPT/HCPCS: 74150

== ENCOUNTER 2024-09-25 07:24 | Outpatient (CLI) | payer MEDICARE, SELFPAY ==
--- NOTE | ~2024-09-25 | MM_ITS ---
EXAMINATION: MM screening [facility] BI w asad HISTORY: Screening TECHNIQUE: Craniocaudal and mediolateral oblique 3-D tomosynthesis images were obtained and synthetic 2-D images were generated. CAD analysis was submitted and interpreted. COMPARISON: 04/11/2023 and dating back to 09/26/2018 BREAST PARENCHYMAL COMPOSITION: There are scattered areas of fibroglandular density. FINDINGS: Stable parenchymal pattern without suspicious microcalcifications, architectural distortion, discrete masses or significant asymmetry. IMPRESSION: 1. No mammographic or tomographic evidence of malignancy. 2. Recommend routine screening mammography in one year. BI-RADS Category 1: Negative Reviewed, dictated and finalized at location A. TEACHER
== END 2024-09-25 07:25 | disposition home or self-care (01) ==
LOC: ANHIMG 07:27
PROVIDERS: PCP Family Medicine Adolescent Medicine; Visit Provider Family Medicine Adolescent Medicine
DX: Z12.31 Encounter for screening mammogram for malignant neoplasm of breast (principal)
CPT/HCPCS: 77063; 77067

== ENCOUNTER 2024-11-10 03:20 | Day surgery (SDC) | payer MEDICARE, SELFPAY ==
[2024-10-29 12:24] VITALS: BMI 35.2
[2024-11-10 12:12] VITALS: BP 137/86; PULSE 87; RESP 16; TEMP 36; O2SAT 100; BMI 33.5
--- NOTE | 2024-11-10 12:14 | WPDANESEPPF ---
Anes - Initial Pre Proc Eval Procedure: Operation Date: 11/10/24 13:30 Proposed Procedures p Colonoscopy - Maciel Bello MD Date/Time: 11/10/24 12:14 Surgeon: Maciel Bello MD Pre Op Diagnosis: Diverticulosis,Benign neoplasm of colon,Melena Patient Data Age: 69 Gender: F Height: 1.63 m Weight: 88.8 kg Last Vital Signs Temp 36.0 C L 11/10/24 12:12 Pulse 87 11/10/24 12:12 Resp 16 11/10/24 12:12 BP 137/86 11/10/24 12:12 Pulse Ox 100 11/10/24 12:12 O2 Del Method Room Air 11/10/24 12:12 Allergies Allergy/AdvReac Type Severity Reaction Status Date / Time No Known Allergies Allergy Verified 11/10/24 12:11 Home Medications ?Medication ?Instructions ?Recorded ?Confirmed ?Type cholecalciferol (vitamin D3) 100 100 mcg PO DAILY 11/01/20 11/10/24 History mcg (4,000 unit) capsule alprazolam 0.25 mg tablet 0.25 mg PO BID PRN anxiety #30 tabs 03/18/23 10/29/24 Rx vitamin B complex 1 cap PO DAILY 03/20/23 11/10/24 History pantoprazole 40 mg tablet,delayed 40 mg PO DAILY PRN heartburn #30 02/12/24 11/10/24 Rx release tabs terbinafine HCl 250 mg tablet 250 mg PO DAILY #30 tabs 09/03/24 11/10/24 Rx Patient hx anesthesia problems: none Family hx anesthesia problems: none Results Review: All pre-operative results and documents have been reviewed as part of the pre-operative evaluation. [facility] Past Medical History Medical History Diverticulosis Internal hemorrhoids Blood in stool Adenomatous polyp of colon Small bowel diverticular disease Back pain Acute upper gastrointestinal bleeding (11/2021) Gastric peptic ulcer 02/08 Acute blood loss anemia 02/08 Anxiety Large hiatal hernia Surgical History Surgical History H/O hernia repair History of ventral hernia repair (09/2021) History of repair of hiatal hernia H/O colonoscopy with polypectomy 02/06 Repeat 02/11 History of fundoplication 06/27 Repair paraesophageal hernia Family History Family History Mother Cerebrovascular accident Family history of cardiovascular disease Depression Heart disease Hypertension Father Family history of cardiovascular disease Carcinoma of colon Colon polyp Diabetes mellitus Heart disease Sibling Carcinoma of colon Depression Social History Social History Social History: The patient is a lifelong nonsmoker. The patient is . The patient is a full code. The patient has 3 children. 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 barney mastersonanne marie full code Smoking status: Never smoker Second hand tobacco smoke exposure: No Alcohol intake: never Substance use: never Substance use type: does not use Lack of Transportation: No Lack of Food: Never True Current Housing: I Have Housing Concerned About Future Housing: No Difficulty Paying Gas/Electric Bills: No Difficulty Paying for Meds: No Currently Unemployed: No Education: Trade/Vocational Certificate Difficulty w/ Childcare or Family Care: No Living arrangements: alone Occupation/Education: occupation Gender identity (if verbalized by the patient): Female Sexual Orientation (if Verbalized by the Patient): Straight or Heterosexual Spiritual care concerns: No Agree to blood products: Yes Anes - Eval Final PreProcedure Day of Procedure 11/10/24 12:14 Patient weight: obese Heart: regular rate and rhythm Lungs: clear to auscultation Airway: Mallampati scale class II Neurological: alert and oriented Last oral intake: >/= 8 hours ASA classification: II Emergent: no Anesthetic plan: proceed Anesthesia type and monitoring: general GIVS and standard monitoring Results Review: All pre-operative results and documents have been reviewed as part of the pre-operative evaluation. Informed Consent: The patient's anesthetic plan and its attendant risks and benefits were discussed with the patient/family/POA. Questions were solicited and answers provided to the satisfaction of the patient/family/POA.
[2024-11-10] MEDS: LACTATED RINGERS 1,000 ML 150 ML IV CONT (12:24)
--- NOTE | 2024-11-10 12:39 | PM.HPGS ---
History of Present Illness History of Present Illness Consent: Risks, benefits, and alternatives have been discussed and questions answered. Patient agrees to proceed with procedure. Chief complaint: Diverticulosis,Benign neoplasm of colon,Melena Narrative: Deena Damon is a 69 year old female with blood in stools, last colonoscopy 2021 with colon polyp Review of Systems Review of Systems: All systems reviewed & are unremarkable except as noted in HPI and below PMFSH Past Medical History Medical History Diverticulosis Internal hemorrhoids Blood in stool Adenomatous polyp of colon Small bowel diverticular disease Back pain Acute upper gastrointestinal bleeding (11/2021) Gastric peptic ulcer 02/08 Acute blood loss anemia 02/08 Anxiety Large hiatal hernia Surgical History Surgical History H/O hernia repair History of ventral hernia repair (09/2021) History of repair of hiatal hernia H/O colonoscopy with polypectomy 02/06 Repeat 02/11 History of fundoplication 06/27 Repair paraesophageal hernia Family History Family History Mother Cerebrovascular accident Family history of cardiovascular disease Depression Heart disease Hypertension Father Family history of cardiovascular disease Carcinoma of colon Colon polyp Diabetes mellitus Heart disease Sibling Carcinoma of colon Depression Social History Social History Social History: The patient is a lifelong nonsmoker. The patient is . The patient is a full code. The patient has 3 children. 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 barney carlos full code Smoking status: Never smoker Second hand tobacco smoke exposure: No Alcohol intake: never Substance use: never Substance use type: does not use Lack of Transportation: No Lack of Food: Never True Current Housing: I Have Housing Concerned About Future Housing: No Difficulty Paying Gas/Electric Bills: No Difficulty Paying for Meds: No Currently Unemployed: No Education: Trade/Vocational Certificate Difficulty w/ Childcare or Family Care: No Living arrangements: alone Occupation/Education: occupation Gender identity (if verbalized by the patient): Female Sexual Orientation (if Verbalized by the Patient): Straight or Heterosexual Spiritual care concerns: No Agree to blood products: Yes Meds Home Medications and Allergies Home Medications ?Medication ?Instructions ?Recorded ?Confirmed ?Type cholecalciferol (vitamin D3) 100 100 mcg PO DAILY 11/01/20 11/10/24 History mcg (4,000 unit) capsule alprazolam 0.25 mg tablet 0.25 mg PO BID PRN anxiety #30 tabs 03/18/23 10/29/24 Rx vitamin B complex 1 cap PO DAILY 03/20/23 11/10/24 History pantoprazole 40 mg tablet,delayed 40 mg PO DAILY PRN heartburn #30 02/12/24 11/10/24 Rx release tabs terbinafine HCl 250 mg tablet 250 mg PO DAILY #30 tabs 09/03/24 11/10/24 Rx Allergies Allergy/AdvReac Type Severity Reaction Status Date / Time No Known Allergies Allergy Verified 11/10/24 12:11 Vital Signs Vital Signs - 24 hr 11/10/24 12:12 Temperature 96.8 F L Pulse Rate 87 Respiratory Rate 16 Blood Pressure 137/86 Pulse Oximetry 100 Oxygen Delivery Room Air Exam Const: General: comfortable and no acute distress HENMT: Face/Nose/Sinus: Normal nares present Eyes: General: appearance normal, both eyes and all related structures Neck: Neck: no JVD Resp: Auscultation: clear to auscultation bilaterally Cardio: Rate: regular rate Rhythm: regular rhythm GI: Inspection: non-distended GI Palp: Yes Soft to palpation Skin: General skin exam: normal color Neuro: Speech: normal speech Extrem: General: normal to inspection Psych: Mental Status: mental status grossly normal Assessment and Plan Assessment and plan (1) Adenomatous polyp of colon: Code(s): D12.6 - Benign neoplasm of colon, unspecified Status: Acute Assessment and Plan: colonoscopy (2) Blood in stool: Code(s): K92.1 - Melena Status: Acute
[2024-11-10 13:09] VITALS: BP 100/58; PULSE 65; RESP 22; O2SAT 93
[2024-11-10 13:19] VITALS: BP 125/74; PULSE 71; RESP 23; O2SAT 95
[2024-11-10 13:29] VITALS: BP 137/88; PULSE 65; RESP 21; O2SAT 100
== END 2024-11-10 13:47 | disposition home or self-care (01) ==
PROVIDERS: PCP Family Medicine Adolescent Medicine; Referring Provider Nurse Practitioner Family; Visit Provider Internal Medicine Gastroenterology
PROC: 0DJD8ZZ Inspection of Lower Intestinal Tract, Via Natural or Artificial Opening Endoscopic (ICD-10-PCS; CPT 45378; principal; 2024-11-10 13:30)
DX: D12.2 Benign neoplasm of ascending colon (principal); K63.5 Polyp of colon; K64.8 Other hemorrhoids; K57.30 Diverticulosis of large intestine without perforation or abscess without bleeding; F41.9 Anxiety disorder, unspecified; D62 Acute posthemorrhagic anemia; E66.9 Obesity, unspecified; Z68.33 Body mass index [BMI] 33.0-33.9, adult; Z98.890 Other specified postprocedural states; Z87.19 Personal history of other diseases of the digestive system; Z87.11 Personal history of peptic ulcer disease; Z83.719 Family history of colon polyps, unspecified; Z80.0 Family history of malignant neoplasm of digestive organs; Z82.49 Family history of ischemic heart disease and other diseases of the circulatory system
CPT/HCPCS: 45385; 88305; J2003; J2704; J7120

== ENCOUNTER 2025-07-09 09:25 | Outpatient (CLI) | payer MEDICARE, SELFPAY ==
--- NOTE | ~2025-07-09 | XR_ITS ---
EXAMINATION: XR abdomen/kub 1V, 07/09/2025 9:40 [facility] HISTORY: R10.9 - Unspecified abdominal pain COMPARISON: No comparisons available. Technique: 3 view. Findings: Moderate fecal content, no dilated bowel loops No free air. No abnormal calcifications No acute osseous abnormality. Impression: 1. No acute abnormality. Reviewed, dictated and finalized at location [facility] Impression: 1. No acute abnormality.
== END 2025-07-09 09:26 | disposition home or self-care (01) ==
PROVIDERS: PCP Family Medicine Adolescent Medicine; Visit Provider Nurse Practitioner
DX: R10.9 Unspecified abdominal pain (principal)
CPT/HCPCS: 74018